=== PATIENT | female | born 1945 | race Two or more races ===

== ENCOUNTER 2023-02-01 12:36 | Emergency (ER) | payer MEDICAID, SELFPAY ==
--- NOTE | 2023-02-01 13:10 | ED.GENADULT ---
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 She states she intermittently gets headaches. She has not seen a doctor since she moved here from [facility] 4 months ago. She denies any new onset weakness, numbness, tingling, chest pain, shortness of breath, vision changes. MD complaint: Untreated hypertension Onset (ago): month(s) (4) Location: head Radiation: non-radiation Severity: moderate Quality: aching Pain Consistency: intermittent Relieving factors: none Exacerbating factors: none Associated symptoms: denies other symptoms Treatments prior to arrival: none Related Data Previous Rx's Medication Instructions Recorded amlodipine 10 mg tablet 10 mg PO DAILY #30 tabs 02/01/23 aspirin 81 mg chewable tablet 81 mg PO DAILY #30 tabs 02/01/23 atorvastatin 40 mg tablet (Lipitor) 40 mg PO BEDTIME #30 tabs 02/01/23 metformin 500 mg tablet 500 mg PO BID #60 tabs 02/01/23 Allergies Allergy/AdvReac Type Severity Reaction Status Date / Time No Known Allergies Allergy Verified 02/01/23 13:11 Review of Systems Review of Systems: Yes all other systems are reviewed and are negative [facility] Social History Social History Advance Directives: No Advance Directives Information Provided: No Physical Exam ED Vital Signs: Vital Signs - 24 hr 02/01/23 13:21 02/01/23 14:33 02/01/23 16:11 Temperature 98 F 98.3 F Pulse Rate 100 84 86 Respiratory Rate 18 16 Blood Pressure 191/113 H 186/87 H 177/86 H Pulse Oximetry 97 98 Oxygen Delivery Method Room Air Room Air BMI result Body Mass Index 0.0 Appearance: Alert. Oriented X3. No acute distress. Head: normocephalic, atraumatic. Eyes: Pupils equal, round and reactive to light. ENT: Pharynx normal. No tonsillar swelling or exudate. Neck: Normal inspection. Neck supple. CVS: Normal heart rate and rhythm. Pulses normal. Respiratory: No respiratory distress. Breath sounds normal. Abdomen: Soft and nontender. +BS x4 Skin: Skin warm and dry. Normal skin color. Normal skin turgor. No rashes. Extremities: No lower extremity edema. No joint swelling. Neuro/psych: Oriented X 3. 4/5 strength in the RUE compared to the left. No sensory deficit. CN II-XII intact. Normal speech and cognition. Course Course Course Narrative: RME: 77-year-old Citizen [place] speaking female w/PMHx HTN presenting to the ED complaining of needing to see a doctor, reports she does not have a doctor and does not have any of her medications. [place]ame to [place] in [place] from [facility] and has been out of medications since. Patient does not know home/previous medications. Admits to intermittent headaches. Denies chest pain Hypertensive 191/113 in triage EKG, labs ordered Full HPI, ROS and PE to be performed by primary ED provider. Medications Administered Discontinued Medications Generic Name Dose Route Start Last Admin Trade Name Freq PRN Reason Stop Dose Admin Amlodipine Besylate 10 mg 02/01/23 14:36 02/01/23 15:17 Amlodipine Besylate 10 Mg Tablet PO 02/01/23 14:37 10 mg ONCE ONE Administration Protocol Medical Decision Making Medical Decision Making [facility] Narrative: 77-year-old Citizen [place] speaking female with history of stroke x2 with residual right-sided weakness and hypertension who presents to the ER for evaluation of untreated hypertension for the last 4 months. Blood pressure initially 190s/110s. She has no current symptoms. Blood pressure improved to the 170 systolic after 10 mg of oral Norvasc. Her labs show glucose of 209 with an A1c of 6.9%. This is consistent with diabetes. Given her stroke history, newly diagnosed diabetes and uncontrolled hypertension she will need to be started on antihypertensives, statin, aspirin, metformin. She will need close outpatient follow-up. Differential Diagnosis Differential Diagnoses: The differential diagnosis associated with the presentation includes Untreated hypertension, accelerated hypertension, hypertensive urgency, hypertensive emergency, asymptomatic hypertension Admission/Observation Consideration of admission/observation: Escalation of care including admission/observation considered Lab Data [facility] Lab Attestation statement: I reviewed the patient's lab results. A1c consistent with diabetes 02/01/23 13:22 02/01/23 13:22 Labs: Lab Results 02/01/23 02/01/23 02/01/23 Range/Units 13:22 13:22 13:22 WBC 6.7 (4.8-10.8) X10*3/uL RBC 5.16 (4.20-5.50) X10*6/uL Hgb 13.0 (12.0-16.0) g/dl Hct 40.0 (37.0-47.0) % MCV 77.5 L (80.0-98.0) fL MCH 25.2 L (27.0-33.0) pg MCHC 32.5 (31.0-35.0) g/dl RDW 14.0 (11.0-16.0) % Plt Count 215 (160-400) X10*3/uL MPV 11.2 (9.4-12.3) fL Immature Gran % (Auto) Cancelled Neut % (Auto) Cancelled Lymph % (Auto) Cancelled Becker % (Auto) Cancelled Eos % (Auto) Cancelled Baso % (Auto) Cancelled Lymph # (Auto) Cancelled Becker # (Auto) Cancelled Eos # (Auto) Cancelled Baso # (Auto) Cancelled Abs Immat Gran (auto) Cancelled Absolute Neuts (auto) Cancelled Absolute Nucleated RBC 0.000 (0.0-0.012) X10*3/uL Nucleated RBC % (auto) 0.0 (0.0-0.2) /100WBC Neutrophils % (Manual) 47 (45-73) % Band Neutrophils % 1 L (3-5) % Lymphocytes % (Manual) 43 H (20-40) % Monocytes % (Manual) 6 (2-11) % Eosinophils % (Manual) 3 (0-4) % Abs Neuts (Manual) 3.2 (2.0-8.3) X10*3/uL Lymphocytes # (Manual) 2.9 (1.2-4.9) X10*3/uL Monocytes # (Manual) 0.4 (0.1-1.2) X10*3/uL Eosinophils # (Manual) 0.2 (0.0-0.4) X10*3/uL Platelet Estimate NORMAL (NORMAL) Large Platelets PRESENT Plt Morphology Comment NOTED RBC Morphology NOTED Polychromasia 1+ (0-2) /OIF Hypochromasia 1+ (5-14) /OIF Microcytosis 1+ (5-14) /OIF Tear Drop Cells 1+ (0-2) /OIF Ovalocytes 1+ (5-14) /OIF [place] Cells 1+ (0-2) /OIF Acanthocytes (Spur) 1+ (0-2) /OIF PT 11.3 (10.0-13.1) SEC INR 1.0 (0.9-1.1) Sodium 139 (135-145) mmol/L Potassium 3.8 (3.3-5.1) mmol/L Chloride 107 (96-108) mmol/L Carbon Dioxide 26 (22-29) mmol/L Anion Gap 10 L (12-20) BUN 13 (9-16) mg/dL Creatinine 0.87 (0.5-1.4) mg/dL Estim Creat Clear Calc TNP Estimated GFR > 60 Random Glucose 209 H (60-115) mg/dL Estimat Average Glucose mg/dL Hemoglobin A1c % % Calcium 10.4 H (8.4-10.2) mg/dL Magnesium 1.8 (1.6-2.6) mg/dL Total Bilirubin 0.7 (0.0-1.0) mg/dL Direct Bilirubin 0.2 (0.0-0.5) mg/dL AST 22 (5-31) U/L ALT 16 (0-31) U/L Alkaline Phosphatase 119 H (39-117) U/L Troponin I High Sens (<3.5-17.0) ng/L Total Protein 7.5 (6.5-8.0) g/dL Albumin 4.1 (3.5-5.0) g/dL 02/01/23 02/01/23 Range/Units 13:22 13:22 WBC (4.8-10.8) X10*3/uL RBC (4.20-5.50) X10*6/uL Hgb (12.0-16.0) g/dl Hct (37.0-47.0) % MCV (80.0-98.0) fL MCH (27.0-33.0) pg MCHC (31.0-35.0) g/dl RDW (11.0-16.0) % Plt Count (160-400) X10*3/uL MPV (9.4-12.3) fL Immature Gran % (Auto) Neut % (Auto) Lymph % (Auto) Becker % (Auto) Eos % (Auto) Baso % (Auto) Lymph # (Auto) Becker # (Auto) Eos # (Auto) Baso # (Auto) Abs Immat Gran (auto) Absolute Neuts (auto) Absolute Nucleated RBC (0.0-0.012) X10*3/uL Nucleated RBC % (auto) (0.0-0.2) /100WBC Neutrophils % (Manual) (45-73) % Band Neutrophils % (3-5) % Lymphocytes % (Manual) (20-40) % Monocytes % (Manual) (2-11) % Eosinophils % (Manual) (0-4) % Abs Neuts (Manual) (2.0-8.3) X10*3/uL Lymphocytes # (Manual) (1.2-4.9) X10*3/uL Monocytes # (Manual) (0.1-1.2) X10*3/uL Eosinophils # (Manual) (0.0-0.4) X10*3/uL Platelet Estimate (NORMAL) Large Platelets Plt Morphology Comment RBC Morphology Polychromasia /OIF Hypochromasia /OIF Microcytosis /OIF Tear Drop Cells /OIF Ovalocytes /OIF [place] Cells /OIF Acanthocytes (Spur) /OIF PT (10.0-13.1) SEC INR (0.9-1.1) Sodium (135-145) mmol/L Potassium (3.3-5.1) mmol/L Chloride (96-108) mmol/L Carbon Dioxide (22-29) mmol/L Anion Gap (12-20) BUN (9-16) mg/dL Creatinine (0.5-1.4) mg/dL Estim Creat Clear Calc Estimated GFR Random Glucose (60-115) mg/dL Estimat Average Glucose 151 mg/dL Hemoglobin A1c % 6.9 % Calcium (8.4-10.2) mg/dL Magnesium (1.6-2.6) mg/dL Total Bilirubin (0.0-1.0) mg/dL Direct Bilirubin (0.0-0.5) mg/dL AST (5-31) U/L ALT (0-31) U/L Alkaline Phosphatase (39-117) U/L Troponin I High Sens < 2.7 (<3.5-17.0) ng/L Total Protein (6.5-8.0) g/dL Albumin (3.5-5.0) g/dL Independent Interpretation I performed an independent interpretation of an: EKG Interpretation: Sinus tachycardia, ventricular rate 110 beats per minute, mild T-wave inversions in V5 and V6, no ST segment elevations or depressions. Independent Historian Clinical information obtained from an independent historian. History obtained from or confirmed by: Friend Chronic Conditions Patient?s care impacted by: Diabetes, Hypertension and Other (Stroke) Social Determinants Patient?s care significantly limited by Social Determinants of Health including: Other Social Determinant of Health Critical Care Time Critical Care Time Critical Care Time: No Discharge Plan Discharge Clinical Impression: Hypertension, Diabetes mellitus Patient Disposition: Home, Self-Care Instructions: Chronic Hypertension (DC), Type 2 Diabetes in the Older Adult (ED) Additional Instructions: Take all medications as prescribed. Follow-up with a primary care doctor as soon as possible Prescriptions: New metformin 500 mg tablet 500 mg PO BID Qty: 60 3RF amlodipine 10 mg tablet 10 mg PO DAILY Qty: 30 3RF atorvastatin [Lipitor] 40 mg tablet 40 mg PO BEDTIME Qty: 30 3RF aspirin 81 mg tablet,chewable 81 mg PO DAILY Qty: 30 3RF
--- NOTE | 2023-02-01 13:14 | ECG_ITS ---
Test Reason : dizziness high bp Blood Pressure : / mmHG Vent. Rate : 110 BPM Atrial Rate : 110 BPM P-R Int : 136 ms QRS Dur : 088 ms QT Int : 310 ms P-R-T Axes : 061 055 -34 degrees QTc Int : 419 ms Sinus tachycardia T wave abnormality, consider inferior ischemia Nonspecific ST and T wave abnormality Abnormal ECG No previous ECGs available Referred By: Simran Smith Electronically Signed By:GRIFFIN MERINO
[2023-02-01 13:21] VITALS: BP 191/113; PULSE 100; RESP 18; TEMP 36.6; O2SAT 97
[2023-02-01 13:31] LABS: Mean Corpuscular HGB Conc 32.5 g/dl (31.0-35.0); Mean Corpuscular Hemoglobin 25.2 pg (27.0-33.0); Mean Corpuscular Volume 77.5 fL (80.0-98.0); Mean Platelet Volume 11.2 fL (9.4-12.3); Platelet Count 215 X10*3/uL (160-400); Red Blood Count 5.16 X10*6/uL (4.20-5.50)
[2023-02-01 13:33] LABS: WBC ABN SCTR FOR CBC 1
[2023-02-01 13:38] LABS: Prothrombin Time 11.3 SEC (10.0-13.1)
[2023-02-01 13:46] LABS: Alanine Aminotransferase 16 U/L (0-31); Albumin Level 4.1 g/dL (3.5-5.0); Alkaline Phosphatase 119 U/L (39-117); Anion Gap 10 (12-20); Aspartate Amino Transferase 22 U/L (5-31); Bilirubin Direct 0.2 mg/dL (0.0-0.5); Bilirubin Total 0.7 mg/dL (0.0-1.0); Blood Urea Nitrogen 13 mg/dL (9-16); Calcium 10.4 mg/dL (8.4-10.2); Carbon Dioxide 26 mmol/L (22-29); Chloride 107 mmol/L (96-108); Estimated Glomerular Filt Rate > 60; Glucose Random 209 mg/dL (60-115); Magnesium 1.8 mg/dL (1.6-2.6); Potassium 3.8 mmol/L (3.3-5.1); Sodium 139 mmol/L (135-145); Total Protein 7.5 g/dL (6.5-8.0)
[2023-02-01 13:59] LABS: Band Neutrophils Percent 1 % (3-5); Eosinophils Percent Manual 3 % (0-4); Lymphocytes Percent Manual 43 % (20-40); Microcytosis 1+ (5-14) /OIF; Monocytes Percent Manual 6 % (2-11); Neutrophils Percent Manual 47 % (45-73); Platelet Estimate NORMAL (NORMAL); Platelet Morphology Comment NOTED; RBC Morphology NOTED
[2023-02-01 14:00] LABS: Acanthocytes 1+ (0-2) /OIF; Burr Cells 1+ (0-2) /OIF; Eosinophils Absolute Manual 0.2 X10*3/uL (0.0-0.4); Hypochromasia 1+ (5-14) /OIF; Large Platelet PRESENT; Lymphocytes Absolute Manual 2.9 X10*3/uL (1.2-4.9); Monocytes Absolute Manual 0.4 X10*3/uL (0.1-1.2); Neutrophils Absolute Manual 3.2 X10*3/uL (2.0-8.3); Ovalocytes 1+ (5-14) /OIF; Polychromasia 1+ (0-2) /OIF; Tear Drop Cells 1+ (0-2) /OIF; White Blood Count 6.7 X10*3/uL (4.8-10.8)
[2023-02-01 14:02] LABS: Troponin-I High Sensitivity < 2.7 ng/L (<3.5-17.0)
[2023-02-01 14:33] VITALS: BP 186/87; PULSE 84; RESP 16; TEMP 36.8; O2SAT 98
[2023-02-01] MEDS: amLODIPine Besylate 10 MG TABLET PO (15:17)
[2023-02-01 15:57] LABS: Estimated Average Glucose 151 mg/dL; Hemoglobin A1c % 6.9 %
[2023-02-01 16:11] VITALS: BP 177/86; PULSE 86
== END 2023-02-01 16:33 | disposition home or self-care (01) ==
PROVIDERS: Physician Assistant; Emergency Provider Emergency Medicine
DX: I10 Essential (primary) hypertension (principal); E11.9 Type 2 diabetes mellitus without complications
CPT/HCPCS: 36415; 80048; 80076; 83036; 83735; 84484; 85007; 85027; 85610; 93005; 99284

== ENCOUNTER 2023-05-28 13:02 | Emergency (ER) | payer MEDICAID, SELFPAY ==
[2023-05-28] VITALS (7 sets, daily range): BP systolic 163–222; BP diastolic 86–121; PULSE 95–121; RESP 12–18; TEMP 36.3–37.2; O2SAT 95–99; BMI 29.8
--- NOTE | 2023-05-28 13:15 | ED.GENADULT ---
HPI - General Adult General Chief complaint: General Medical Stated complaint: R arm weakness? Multiple issues Time Seen by Provider: 05/28/23 17:36 Source: patient Mode of arrival: ambulatory Limitations: language barrier History of Present Illness HPI narrative: patient history of hypertension CVA in the past trinidadian, noncompliant to medications [place]CP in [place] here last time in 02/12 and was given prescription for hypertension comes back again as does not have any medication and trying to use medication off and on to last longer now she does not have any more tablets labs had she came here also complaining of mild headache no nausea no vomiting no chest pain on arrival patient's blood pressure 204/103 with pulse rate of 80 Related Data Previous Rx's Medication Instructions Recorded amlodipine 10 mg tablet 10 mg PO DAILY #30 tabs 02/01/23 aspirin 81 mg chewable tablet 81 mg PO DAILY #30 tabs 02/01/23 atorvastatin 40 mg tablet (Lipitor) 40 mg PO BEDTIME #30 tabs 02/01/23 metformin 500 mg tablet 500 mg PO BID #60 tabs 02/01/23 amlodipine 10 mg tablet 10 mg PO DAILY #90 tabs 05/28/23 aspirin 81 mg tablet,delayed 81 mg PO DAILY #90 tabs 05/28/23 release atorvastatin 40 mg tablet (Lipitor) 40 mg PO BEDTIME #90 tabs 05/28/23 losartan 50 mg-hydrochlorothiazide 1 tab PO DAILY #90 tabs 05/28/23 12.5 mg tablet metformin 500 mg tablet 500 mg PO BID #180 tabs 05/28/23 Allergies Allergy/AdvReac Type Severity Reaction Status Date / Time No Known Allergies Allergy Verified 05/28/23 13:15 Review of Systems Review of Systems: Yes all other systems are reviewed and are negative [facility] Past Medical History Medical History (Updated 05/29/23 @ 01:29 by Shai Augustine MD) CVA (cerebral vascular accident) Hypertension Social History Social History Advance Directives: No Advance Directives Information Provided: No Physical Exam ED Vital Signs: Vital Signs - 24 hr 05/28/23 13:17 05/28/23 16:12 05/28/23 18:00 Temperature 97.4 F 99.0 F Pulse Rate 121 H 98 116 H Respiratory Rate 18 16 18 Blood Pressure 181/102 H 204/103 H 197/121 H Pulse Oximetry 98 96 Oxygen Delivery Method Room Air Room Air 05/28/23 18:47 05/28/23 18:54 05/28/23 18:56 Temperature 97.8 F Pulse Rate 98 99 Respiratory Rate 12 Blood Pressure 209/114 H 222/112 H 182/105 H Pulse Oximetry 99 Oxygen Delivery Method Room Air 05/28/23 20:18 Temperature 98.3 F Pulse Rate 95 Respiratory Rate 16 Blood Pressure 163/86 H Pulse Oximetry 95 Oxygen Delivery Method Room Air BMI result Body Mass Index 29.8 Appearance: Alert. Oriented X3. No acute distress. Eyes: PERRLA, No Nystagmus ENT: Pharynx normal. Oral Mucosa moist Neck: Normal inspection. Neck supple. CVS: Normal heart rate and rhythm. Pulses normal. Respiratory: No respiratory distress. Equal air entry bilateral, no wheezing/rales/rhonchi Abdomen: Soft and nontender. Bowel sounds are present, no mass palpable, no CVA tenderness Skin: Skin warm and dry. Normal skin color. Normal skin turgor. Extremities: No lower extremity edema. No calf tenderness Neuro: Oriented X 3. residual right-sided deficit. No sensory deficit.No cerebellar signs , cranial nerves II-XII intact Course Course Course Narrative: This is an RME: Additional HPI, ROS, PE not included below will be deferred to primary provider. 78 year old female presenting with a chief complaint that her body hurts at night that has been going on x3 days. She reports that right now she has a headache but no pain. Plan: labs, EKG Medications Administered Discontinued Medications Generic Name Dose Route Start Last Admin Trade Name Tanisha PRN Reason Stop Dose Admin Amlodipine Besylate 10 mg 05/28/23 18:22 05/28/23 18:28 Amlodipine Besylate 10 Mg Tablet PO 05/28/23 18:23 10 mg ONCE ONE Administration Protocol Losartan Potassium 50 mg 05/28/23 19:36 05/28/23 19:55 Losartan Potassium 50 Mg Tablet PO 05/28/23 19:37 50 mg ONCE ONE Administration Protocol Medical Decision Making Medical Decision Making MDM Narrative: patient educated about hypertension need for medications prescribed medication for 3 months along with added losartan for better blood pressure control at PCP name was given patient will be following PCP in next few days blood pressure improved to 163/86 Differential Diagnosis Differential Diagnoses: The differential diagnosis associated with the presentation includes accelerated hypertension /chronic hypertension Admission/Observation Consideration of admission/observation: Escalation of care including admission/observation considered Lab Data 05/28/23 13:34 05/28/23 13:34 Labs: Lab Results 05/28/23 05/28/23 05/28/23 Range/Units 13:34 13:34 13:34 WBC 7.7 (4.8-10.8) X10*3/uL RBC 5.15 (4.20-5.50) X10*6/uL Hgb 13.2 (12.0-16.0) g/dl Hct 39.8 (37.0-47.0) % MCV 77.3 L (80.0-98.0) fL MCH 25.6 L (27.0-33.0) pg MCHC 33.2 (31.0-35.0) g/dl RDW 15.3 (11.0-16.0) % Plt Count 254 (160-400) X10*3/uL MPV 11.7 (9.4-12.3) fL Immature Gran % (Auto) Cancelled Neut % (Auto) Cancelled Lymph % (Auto) Cancelled [place] % (Auto) Cancelled Eos % (Auto) Cancelled Baso % (Auto) Cancelled Lymph # (Auto) Cancelled [place] # (Auto) Cancelled Eos # (Auto) Cancelled Baso # (Auto) Cancelled Abs Immat Gran (auto) Cancelled Absolute Neuts (auto) Cancelled Absolute Nucleated RBC 0.000 (0.0-0.012) X10*3/uL Nucleated RBC % (auto) 0.0 (0.0-0.2) /100WBC Neutrophils % (Manual) 57 (45-73) % Band Neutrophils % 0 L (3-5) % Lymphocytes % (Manual) 35 (20-40) % Monocytes % (Manual) 8 (2-11) % Abs Neuts (Manual) 4.4 (2.0-8.3) X10*3/uL Lymphocytes # (Manual) 2.7 (1.2-4.9) X10*3/uL Monocytes # (Manual) 0.6 (0.1-1.2) X10*3/uL Platelet Estimate NORMAL (NORMAL) Large Platelets PRESENT Plt Morphology Comment NOTED RBC Morphology NOTED Polychromasia 1+ (0-2) /OIF Microcytosis 1+ (5-14) /OIF Tear Drop Cells 1+ (0-2) /OIF Ovalocytes 1+ (5-14) /OIF [place] Cells 1+ (0-2) /OIF Acanthocytes (Spur) 1+ (0-2) /OIF Sodium 142 (135-145) mmol/L Potassium 3.6 (3.3-5.1) mmol/L Chloride 107 (96-108) mmol/L Carbon Dioxide 26 (22-29) mmol/L Anion Gap 13 (12-20) BUN 13 (9-16) mg/dL Creatinine 0.85 (0.5-1.4) mg/dL Estim Creat Clear Calc 62.5 Estimated GFR > 60 Random Glucose 100 (60-115) mg/dL Calcium 11.8 H D (8.4-10.2) mg/dL Magnesium 2.1 (1.6-2.6) mg/dL Total Bilirubin 0.6 (0.0-1.0) mg/dL AST 18 (5-31) U/L ALT 16 (0-31) U/L Alkaline Phosphatase 117 (39-117) U/L Troponin I High Sens < 2.7 (<3.5-17.0) ng/L Total Protein 8.5 H (6.5-8.0) g/dL Albumin 4.4 (3.5-5.0) g/dL COVID-19 (MICHAEL) (Negative) COVID-19 Clin Com 05/28/23 Range/Units 18:04 WBC (4.8-10.8) X10*3/uL RBC (4.20-5.50) X10*6/uL Hgb (12.0-16.0) g/dl Hct (37.0-47.0) % MCV (80.0-98.0) fL MCH (27.0-33.0) pg MCHC (31.0-35.0) g/dl RDW (11.0-16.0) % Plt Count (160-400) X10*3/uL MPV (9.4-12.3) fL Immature Gran % (Auto) Neut % (Auto) Lymph % (Auto) [place] % (Auto) Eos % (Auto) Baso % (Auto) Lymph # (Auto) [place] # (Auto) Eos # (Auto) Baso # (Auto) Abs Immat Gran (auto) Absolute Neuts (auto) Absolute Nucleated RBC (0.0-0.012) X10*3/uL Nucleated RBC % (auto) (0.0-0.2) /100WBC Neutrophils % (Manual) (45-73) % Band Neutrophils % (3-5) % Lymphocytes % (Manual) (20-40) % Monocytes % (Manual) (2-11) % Abs Neuts (Manual) (2.0-8.3) X10*3/uL Lymphocytes # (Manual) (1.2-4.9) X10*3/uL Monocytes # (Manual) (0.1-1.2) X10*3/uL Platelet Estimate (NORMAL) Large Platelets Plt Morphology Comment RBC Morphology Polychromasia /OIF Microcytosis /OIF Tear Drop Cells /OIF Ovalocytes /OIF [place] Cells /OIF Acanthocytes (Spur) /OIF Sodium (135-145) mmol/L Potassium (3.3-5.1) mmol/L Chloride (96-108) mmol/L Carbon Dioxide (22-29) mmol/L Anion Gap (12-20) BUN (9-16) mg/dL Creatinine (0.5-1.4) mg/dL Estim Creat Clear Calc Estimated GFR Random Glucose (60-115) mg/dL Calcium (8.4-10.2) mg/dL Magnesium (1.6-2.6) mg/dL Total Bilirubin (0.0-1.0) mg/dL AST (5-31) U/L ALT (0-31) U/L Alkaline Phosphatase (39-117) U/L Troponin I High Sens (<3.5-17.0) ng/L Total Protein (6.5-8.0) g/dL Albumin (3.5-5.0) g/dL COVID-19 (MICHAEL) Negative (Negative) COVID-19 Clin Com See Note Discharge Plan Discharge Clinical Impression: Hypertension, uncontrolled Patient Disposition: Home, Self-Care Instructions: Chronic Hypertension (ED) Additional Instructions: take medication as prescribed and see the PCP for follow-up your blood pressure normal should be less than 130/85 check blood pressure twice daily before taking the medicine and before going to bed bunny alegria epi w? PCP freddy f? swivi tansyon ou n?mal ta dwe mwens pase 130/85 tcheke tansyon de fwreji phillip ou bunny [facility] an ak anvan ou dewey mansoor stoll Prescriptions: New amlodipine 10 mg tablet 10 mg PO DAILY Qty: 90 3RF losartan-hydrochlorothiazide 50-12.5 mg tablet 1 tab PO DAILY Qty: 90 3RF aspirin 81 mg tablet,delayed release (DR/EC) 81 mg PO DAILY Qty: 90 3RF atorvastatin [Lipitor] 40 mg tablet 40 mg PO BEDTIME Qty: 90 3RF metformin 500 mg tablet 500 mg PO BID Qty: 180 3RF No Action metformin 500 mg tablet 500 mg PO BID Qty: 60 3RF amlodipine 10 mg tablet 10 mg PO DAILY Qty: 30 3RF atorvastatin [Lipitor] 40 mg tablet 40 mg PO BEDTIME Qty: 30 3RF aspirin 81 mg tablet,chewable 81 mg PO DAILY Qty: 30 3RF Referrals: Ángela Cantrell MD [Physician] - 2 weeks Discharge Date/Time: 05/28/23 20:43
--- NOTE | 2023-05-28 13:22 | ECG_ITS ---
Test Reason : CHEST PAIN Blood Pressure : / mmHG Vent. Rate : 126 BPM Atrial Rate : 126 BPM P-R Int : 130 ms QRS Dur : 078 ms QT Int : 292 ms P-R-T Axes : 066 038 024 degrees QTc Int : 422 ms Sinus tachycardia Possible Left atrial enlargement Nonspecific T wave abnormality Abnormal ECG When compared with ECG of 01-FEB-2023 13:26, Nonspecific T wave abnormality has replaced inverted T waves in Inferior leads Referred By: Linnea Darby Electronically Signed By:KODY ESCUDERO
[2023-05-28 13:49] LABS: Hematocrit 39.8 % (37.0-47.0); Hemoglobin 13.2 g/dl (12.0-16.0); Mean Corpuscular HGB Conc 33.2 g/dl (31.0-35.0); Mean Corpuscular Hemoglobin 25.6 pg (27.0-33.0); Mean Corpuscular Volume 77.3 fL (80.0-98.0); Mean Platelet Volume 11.7 fL (9.4-12.3); Platelet Count 254 X10*3/uL (160-400); Red Blood Count 5.15 X10*6/uL (4.20-5.50); Red Cell Distribution Width 15.3 % (11.0-16.0)
[2023-05-28 13:55] LABS: WBC ABN SCTR FOR CBC 1; White Blood Count 7.7 X10*3/uL (4.8-10.8)
[2023-05-28 14:06] LABS: Alanine Aminotransferase 16 U/L (0-31); Albumin Level 4.4 g/dL (3.5-5.0); Alkaline Phosphatase 117 U/L (39-117); Anion Gap 13 (12-20); Aspartate Amino Transferase 18 U/L (5-31); Bilirubin Total 0.6 mg/dL (0.0-1.0); Blood Urea Nitrogen 13 mg/dL (9-16); Calcium 11.8 mg/dL (8.4-10.2); Carbon Dioxide 26 mmol/L (22-29); Chloride 107 mmol/L (96-108); Creatinine Clr Calc Pharmacy 62.5; Estimated Glomerular Filt Rate > 60; Glucose Random 100 mg/dL (60-115); Magnesium 2.1 mg/dL (1.6-2.6); Potassium 3.6 mmol/L (3.3-5.1); Sodium 142 mmol/L (135-145); Total Protein 8.5 g/dL (6.5-8.0)
[2023-05-28 14:12] LABS: Lymphocytes Absolute Manual 2.7 X10*3/uL (1.2-4.9); Lymphocytes Percent Manual 35 % (20-40); Monocytes Absolute Manual 0.6 X10*3/uL (0.1-1.2); Monocytes Percent Manual 8 % (2-11); Neutrophils Percent Manual 57 % (45-73)
[2023-05-28 14:13] LABS: RBC Morphology NOTED
[2023-05-28 14:14] LABS: Acanthocytes 1+ (0-2) /OIF; Burr Cells 1+ (0-2) /OIF; Ovalocytes 1+ (5-14) /OIF
[2023-05-28 14:15] LABS: Troponin-I High Sensitivity < 2.7 ng/L (<3.5-17.0)
[2023-05-28 14:16] LABS: Microcytosis 1+ (5-14) /OIF
[2023-05-28 14:17] LABS: Large Platelet PRESENT; Platelet Estimate NORMAL (NORMAL); Platelet Morphology Comment NOTED; Polychromasia 1+ (0-2) /OIF; Tear Drop Cells 1+ (0-2) /OIF
[2023-05-28 14:18] LABS: Band Neutrophils Percent 0 % (3-5); Neutrophils Absolute Manual 4.4 X10*3/uL (2.0-8.3)
--- NOTE | 2023-05-28 16:04 | PC.NURSE ---
lior speaking only translation with [facility]; pt states she needs medication refill for bp medication; last dose yesterday. pt reports skipped todays dose d/t bp 120s/80s this am. pt reports intermittent body aches/ABEBE during nighttime; reports 3/10 pain last night. axox4, neuros intact. awaiting primary eval by ed provider. call bryson within reach.
--- NOTE | 2023-05-28 18:16 | PC.NURSE ---
pt sinus tachy on the bus monitor. pt has low grade temp at 99.0 orally. BP on left side 197/121 and BP on right side 214/119. will notify provider.
[2023-05-28 18:23] LABS: COVID-19 Test Negative (Negative); IDNOW Serial# 08D9AD1C
[2023-05-28] MEDS: amLODIPine Besylate 10 MG TABLET PO (18:28)
--- NOTE | 2023-05-28 18:29 | PC.NURSE ---
provider aware of pt's hypertension - medication administered per provider order. pt's BP cycling q15min. will reassess blood pressure shortly. call bryson placed within reach.
[2023-05-28] MEDS: Losartan Potassium 50 MG TABLET PO (19:55)
== END 2023-05-28 20:43 | disposition home or self-care (01) ==
PROVIDERS: Physician Assistant; Emergency Provider Internal Medicine
DX: R07.89 Other chest pain (principal); R00.0 Tachycardia, unspecified; I10 Essential (primary) hypertension; Z20.822 Contact with and (suspected) exposure to COVID-19; Z20.828 Contact with and (suspected) exposure to other viral communicable diseases; Z79.899 Other long term (current) drug therapy
CPT/HCPCS: 36415; 80053; 83735; 84484; 85007; 85027; 87635; 93005; 99283; 99284

== ENCOUNTER 2024-01-15 07:37 | Outpatient (AMB) | payer MEDICAID, SELFPAY ==
[2024-01-15 07:45] VITALS: BP 166/88; BMI 30.4
--- NOTE | 2024-01-15 07:45 | A.OFFPC_ITS ---
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 Required: No Accompanied by: Friend Allergies No Known Allergies Allergy (Verified 01/15/24 08:01) Medication List - Last Reconciled 01/15/24 by Ángela Balbuena MD amlodipine 10 mg PO DAILY aspirin 81 mg PO DAILY atorvastatin (Lipitor) 40 mg PO BEDTIME losartan-hydrochlorothiazide 50-12.5 mg 1 tab PO DAILY metformin 500 mg PO BID Tobacco use date assessed: 01/15/24 Fall risk assessment: No Falls in past year Last assessed Fall Risk: 01/15/24 Dental Screening Dental Screen Date: 01/15/24 Did you have a dental visit in the last 12 months?: Yes Did you have a dental problem in the last 6 months where you did not have access to dental care?: No Was dental information given to patient?: Patient has dentist HPI HPI Comments History of Present Illness Details This is a 78-year-old female with diabetes mellitus type 2 without long-term current use of insulin, hypertension, hyperlipidemia, and history of stroke with right hemiplegia that comes today accompanied by a friend to establish care. Her A1cs within goal. Blood pressure elevated and will be recheck in 3 weeks by nurse. She complains of constipation with less than 3 bowel movements per week. She also complains of polyuria and I will change losartan-hydrochlorothiazide to losartan only and increase the dose. Lipid panel will be order and her LDL goal should be less than 70. She only talks creole and has a friend as the communications specialist. [facility] Medical History (Updated 01/15/24 @ 08:27 by Ángela Balbuena MD) CVA (cerebral vascular accident) Hypertension Surgical History No pertinent past surgical history Family History Mother Hypertension Father No problems noted. Social History Housing: House Alcohol intake: never Patient Tobacco Use Status: Never used Tobacco e-Cigarette/Vaping Use: Never Used Second Hand Smoke Exposure: No service: No Current occupational status: disabled Cognitive needs: Yes Hearing needs: No Vision needs: Yes Questionnaire PHQ-9 Over the last 2 weeks, how often have you been bothered by any of the following problems? 1. Little interest or pleasure in doing things: not at all 2. Feeling down, depressed, or hopeless: not at all 3. Trouble falling or staying asleep, or sleeping too much: not at all 4. Feeling tired or having little energy: not at all 5. Poor appetite or overeating: not at all 6. Feeling bad about yourself - or that you are a failure or have let yourself or your family down: not at all 7. Trouble concentrating on things, such as reading the newspaper or watching television: not at all 8. Moving or speaking so slowly that other people could have noticed. Or the opposite - being so fidgety or restless that you have been moving around a lot more than usual: not at all 9. Thoughts that you would be better off or of hurting yourself in some way: not at all Total score: 0 Depression Screening Interpretation: Negative Depression Screening Done: Yes 72775 - PHQ-9 Billing: Yes Source: Developed by Drs. Guy Yun, Norma Solis, Sunday Thompson and colleagues, with an educational alex from [employer]. Thrive Questionnaire Date Thrive assessed: 01/15/24 I am a: Patient What is your living situation today?: I have a steady place to live Within the past 12 months, did the food you bought not last and you didn't have the money to get more?: Never true Within the past 12 months, did you worry whether your food would run out before you got money to buy more?: Never true Do you have trouble paying for medicines?: No Do you have trouble getting transportation to medical appointments?: No Do you have trouble paying your heating and electricity bill?: No Do you have trouble taking care of your child, family member or friend?: No Do you have trouble with day-to-day activities such as bathing, preparing meals, shopping, managing finances, etc.?: Yes Are you currently unemployed and looking for a job?: No Are you interested in more education?: No Please select the resources that you would like help with: None Currently or been in a relationship where the following occur: no concerns reported THRIVE Score: 0 AUDIT C Alcohol Use Questionnaire (AUDIT-C) 1. How often do you have a drink containing alcohol?: Never Total Score: 0 Score Reviewed/Action Taken: No DAXA-7 AMB Questionnaire DAXA-7 Date DAXA - 7 assessed: 01/15/24 Feeling nervous, anxious, or on edge: 0 = Not at all Not being able to stop or control worryin = Not at all Worrying too much about different things: 0 = Not at all Trouble relaxin = Not at all Being so restless that it is hard to sit still: 0 = Not at all Becoming easily annoyed or irritable: 0 = Not at all Feeling afraid as if something awful might happen: 0 = Not at all Total DAXA-7 score (0-4 normal; 5-9 mild; 10-14 moderate; 15-21 severe): 0 Source: Developed by Drs. Guy Yun, Norma Solis, Sunday Thompson and colleagues, with an educational alex from [employer]. DAXA-7 Assessment Billing DAXA-7 Assessment Tool: DAXA-7 Assessment 71525 Review of Systems Const All systems reviewed & are unremarkable except as noted in HPI and below Eyes Reports no additional complaints, Denies change in vision and Denies other visual disturbances Card Denies chest pain at rest, Denies chest pain with activity, Denies edema, Denies irregular heart rhythm, Denies claudication, Denies dyspnea, Denies dyspnea on exertion, Denies orthopnea, Denies paroxysmal nocturnal dyspnea and Denies slow heart rate Resp Denies cough, Denies dyspnea and Denies dyspnea on exertion GI Denies abdominal pain, Denies change in bowel habits, Reports constipation, Denies excessive flatus, Denies nausea and Denies vomiting Reports urinary incontinence, Denies urinary hesitancy and Denies urinary urgency Neuro Reports focal weakness Physical exam (Primary Care) Vital Signs: Last Vital Signs BP 166/88 H 01/15/24 07:45 BMI result Body Mass Index 30.4 BMI Assessment/Plan discussion: High Tobacco/Smoking Status: Tobacco use Status Tobacco use date assessed 01/15/24 01/15/24 07:54 Patient Tobacco Use Status Never used Tobacco 01/15/24 07:54 e-Cigarette/Vaping Use Never Used 01/15/24 07:54 PHQ-9: PHQ-9 Score PHQ-9: Total score 0 01/15/24 07:54 Depression Screening Interpretation: Negative Thrive Assessment: Date of Thrive Assessment Date Thrive assessed 01/15/24 01/15/24 07:54 Currently or been in a relationship where the following occur: no concerns reported Resp Effort & Inspection: normal respiratory effort Auscultation: clear to auscultation bilaterally Cardio Jugular venous distension: no JVD Rate: regular rate Rhythm: regular rhythm Heart sounds: Murmur heart sound present Neuro Motor exam (neuro): Abnormal motor strength present (right upper limb 1/5, right lower limb 5/5, left side 5/5) Psych Appearance: grossly normal Results AMB Hemoglobin A1c AMB Hemoglobin A1c 6.0 % Last Edit by CESAR Hernandez on 01/15/24 08:0 7 Assessment and Plan Assessment & Plan (1) Type 2 diabetes mellitus, without long-term current use of insulin: Code(s): E11.9 - Type 2 diabetes mellitus without complications Plan: Continue metformin. A1c goal is equal or less than 7%. (2) Essential hypertension: Code(s): I10 - Essential (primary) hypertension Plan: Continue amlodipine. Discontinue losartan-hydrochlorothiazide. Start losartan 100 mg once a day. Blood pressure goal is equal or less than 130/80. Recheck blood pressure with nurse navigator in 3 weeks. (3) Hyperlipidemia LDL goal <70: Code(s): E78.5 - Hyperlipidemia, unspecified Plan: Continue statins. LDL goal is less than 70. (4) Right hemiplegia: Code(s): G81.91 - Hemiplegia, unspecified affecting right dominant side Plan: Continue aspirin for secondary prophylaxis. Continue family support. (5) CVA (cerebral vascular accident): Code(s): I63.9 - Cerebral infarction, unspecified Plan: Continue aspirin for secondary prophylaxis. Blood pressure goal is less than 130/80. LDL goal is less than 70 Orders: Orders XR DEXA axial skeleton Today N95.9 - Unspecified menopausal and perimenopausal disorder Complete Blood Count Auto Diff Today E66.9 - Obesity, unspecified AMB Hemoglobin A1c Today E11.9 - Type 2 diabetes mellitus without complications CA echo transthoracic complete Today R01.1 - Cardiac murmur, unspecified Lipid Panel Today E78.5 - Hyperlipidemia, unspecified Microalbumin, Random (w Creat) Today E11.9 - Type 2 diabetes mellitus without complications MM screening mammo BI Today Z12.31 - Encounter for screening mammogram for malignant neoplasm of breast Comprehensive [place]. Panel Fast Today E11.9 - Type 2 diabetes mellitus without complications Medications: Discontinued amlodipine Discontinued Reason: Duplicate 10 mg PO DAILY 30 tabs 3RF atorvastatin (Lipitor) Discontinued Reason: Duplicate 40 mg PO BEDTIME 30 tabs 3RF aspirin Discontinued Reason: Duplicate 81 mg PO DAILY 30 tabs 3RF metformin Discontinued Reason: Duplicate 500 mg PO BID 60 tabs 3RF Coding Level of Care Code New Pt Level 4 (84574) Diagnoses Type 2 diabetes mellitus, without long-term current use of insulin E11.9 Essential hypertension I10 Hyperlipidemia LDL goal <70 E78.5 Right hemiplegia G81.91 CVA (cerebral vascular accident) I63.9 Additional Codes DAXA-7 Assessment Billing - DAXA-7 Assessment Tool: DAXA-7 Assessment [id number] ([id number]) Time Spent (min) 28
[2024-01-15 08:27] VITALS: BP 150/90
== END 2024-01-15 08:23 | disposition home or self-care (01) ==
PROVIDERS: PCP Internal Medicine; Visit Provider Internal Medicine
DX: E11.9 Type 2 diabetes mellitus without complications (principal); I10 Essential (primary) hypertension; E78.5 Hyperlipidemia, unspecified; I69.351 Hemiplegia and hemiparesis following cerebral infarction affecting right dominant side
CPT/HCPCS: 83036; 99204

== ENCOUNTER 2024-05-27 16:12 | Outpatient (AMB) | payer MEDICAID, SELFPAY ==
[2024-05-27 16:16] VITALS: BP 164/90; PULSE 98; O2SAT 99; BMI 29.5
--- NOTE | 2024-05-27 16:16 | A.OFFPC_ITS ---
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 Accompanied by: Family Friend Allergies No Known Allergies Allergy (Verified 05/27/24 16:23) Medication List - Last Reconciled 05/27/24 by Ángela Balbuena MD amlodipine 10 mg PO DAILY 90 days aspirin 81 mg PO DAILY 90 days atorvastatin (Lipitor) 40 mg PO BEDTIME 90 days blood sugar diagnostic (FreeStyle Lite Strips) Use 1 test strip once a day blood-glucose meter (FreeStyle Lite Meter kit) As directed hydralazine 10 mg PO TID 30 days lactulose 10 grams (15 mL) PO BID PRN 30 days lancets (FreeStyle Lancets) Use 1 lancet once a day losartan 100 mg PO DAILY 90 days metformin 500 mg PO BID 90 days sennosides (senna) 8.6 mg PO BEDTIME PRN 90 days Tobacco use date assessed: 01/15/24 Fall risk assessment: No Falls in past year Last assessed Fall Risk: 05/27/24 Dental Screening Dental Screen Date: 01/15/24 HPI HPI Comments History of Present Illness Details This is a 79-year-old female with diabetes mellitus type 2, hypertension, hyperlipidemia and chronic idiopathic constipation that comes today for follow-up on her conditions accompanied by friend which is the core inserter. A1c within goal. Blood pressure elevated and I will increase hydralazine. Blood pressure will be recheck in 3 weeks by nurse navigator. Lipid panel was reorder and her LDL goal should be less than 70. Constipation stable with lactulose as needed. Denies any chest pain or shortness on breath. [facility] Medical History CVA (cerebral vascular accident) Hypertension Surgical History No pertinent past surgical history Family History Mother Hypertension Father No problems noted. Social History Housing: House Alcohol intake: never Patient Tobacco Use Status: Never used Tobacco e-Cigarette/Vaping Use: Never Used Second Hand Smoke Exposure: No service: No Current occupational status: disabled Cognitive needs: Yes Hearing needs: No Vision needs: Yes Questionnaire Thrive Questionnaire Date Thrive assessed: 01/15/24 DAXA-7 AMB Questionnaire DAXA-7 Date DAXA - 7 assessed: 01/15/24 Source: Developed by Drs. Guy Yun, Norma Solis, Sunday Thompson and colleagues, with an educational alex from [employer]. Review of Systems Const All systems reviewed & are unremarkable except as noted in HPI and below Card Denies chest pain at rest, Denies chest pain with activity, Denies edema, Denies irregular heart rhythm, Denies claudication, Denies dyspnea, Denies dyspnea on exertion, Denies orthopnea, Denies paroxysmal nocturnal dyspnea and Denies slow heart rate Resp Denies cough, Denies dyspnea and Denies dyspnea on exertion GI Denies abdominal pain, Denies change in bowel habits, Denies excessive flatus, Denies nausea and Denies vomiting Denies urinary incontinence, Denies urinary hesitancy and Denies urinary urgency Musc Denies atrophy, Denies deformity and Denies limited range of motion Skin/Breast Denies bleeding lesions, Denies changing lesions and Denies rash Physical exam (Primary Care) Vital Signs: Last Vital Signs Pulse 98 05/27/24 16:16 BP 164/90 H 05/27/24 16:16 Pulse Ox 99 05/27/24 16:16 Oxygen Delivery Method Room Air 05/27/24 16:16 BMI result Body Mass Index 29.5 Tobacco/Smoking Status: Tobacco use Status Tobacco use date assessed 01/15/24 05/27/24 16:24 Patient Tobacco Use Status Never used Tobacco 05/27/24 16:24 e-Cigarette/Vaping Use Never Used 05/27/24 16:24 Thrive Assessment: Date of Thrive Assessment Date Thrive assessed 01/15/24 05/27/24 16:24 Resp Effort & Inspection: normal respiratory effort Auscultation: clear to auscultation bilaterally Cardio Jugular venous distension: no JVD Rate: regular rate Rhythm: regular rhythm Heart sounds: S1 normal heart sound present and S2 normal heart sound present Extrem General: Yes full ROM Results AMB Hemoglobin A1c AMB Hemoglobin A1c 5.9 % Last Edit by GARY Vargas on 05/27/24 16:25 Results Reviewed Results Reviewed: Laboratory Last Values Hgb A1c (Clinic) 5.9 % (4.0-6.0) 05/27/24 16:14 Assessment and Plan Assessment & Plan (1) Type 2 diabetes mellitus, without long-term current use of insulin: Code(s): E11.9 - Type 2 diabetes mellitus without complications Qualifiers: Diabetes mellitus complication status: without complication Qualified Code(s): E11.9 - Type 2 diabetes mellitus without complications Plan: Continue metformin. A1c goal is equal or less than 7%. (2) Essential hypertension: Code(s): I10 - Essential (primary) hypertension Plan: Continue losartan and amlodipine. Increase hydralazine. Blood pressure goal is equal or less than 130/80. (3) Hyperlipidemia LDL goal <70: Code(s): E78.5 - Hyperlipidemia, unspecified Plan: Continue statins. LDL goal is less than 70. (4) Chronic idiopathic constipation: Code(s): K59.04 - Chronic idiopathic constipation Plan: Continue lactulose as needed. Orders: Orders Lipid Panel Today E78.5 - Hyperlipidemia, unspecified AMB Hemoglobin A1c Today E11.9 - Type 2 diabetes mellitus without complications Microalbumin, Random (w Creat) Today E11.9 - Type 2 diabetes mellitus without complications Vitamin D 25-OH Total Today E55.9 - Vitamin D deficiency, unspecified Comprehensive [place]. Panel Fast Today I63.9 - Cerebral infarction, unspecified Medications: New hydralazine 25 mg PO TID 90 tabs 6RF 30 days Refilled aspirin 81 mg PO DAILY 90 tabs 3RF 90 days I63.9 - Cerebral infarction, unspecified lactulose 10 grams (15 mL) PO BID PRN 237 mL 2RF constipation 30 days lancets (FreeStyle Lancets) Use 1 lancet once a day 100 ea 6RF E11.9 - Type 2 diabetes mellitus without complications amlodipine 10 mg PO DAILY 90 tabs 3RF 90 days I10 - Essential (primary) hypertension atorvastatin (Lipitor) 40 mg PO BEDTIME 90 tabs 3RF 90 days E78.5 - Hyperlipidemia, unspecified blood sugar diagnostic (FreeStyle Lite Strips) Use 1 test strip once a day 50 ea 6RF E11.9 - Type 2 diabetes mellitus without complications blood-glucose meter (FreeStyle Lite Meter kit) As directed 1 ea 0RF E11.9 - Type 2 diabetes mellitus without complications losartan 100 mg PO DAILY 90 tabs 1RF 90 days I10 - Essential (primary) hypertension metformin 500 mg PO BID 180 tabs 3RF 90 days E11.9 - Type 2 diabetes mellitus without complications sennosides (senna) 8.6 mg PO BEDTIME PRN 90 tabs 0RF constipation 90 days K59.04 - Chronic idiopathic constipation Discontinued hydralazine Discontinued Reason: Patient Completed Course 10 mg PO TID 30 days 90 tabs 1RF Coding Level of Care Code Est Pt Level 4 (97454) Complex EM visit Add On G2211 Diagnoses Type 2 diabetes mellitus without complication, without long-term current use of insulin E11.9 Diabetes mellitus complication status: without complication Essential hypertension I10 Hyperlipidemia LDL goal <70 E78.5 Chronic idiopathic constipation K59.04 Time Spent (min) 23
[2024-05-27 19:01] VITALS: BP 160/90
== END 2024-05-27 16:34 | disposition home or self-care (01) ==
PROVIDERS: PCP Internal Medicine; Visit Provider Internal Medicine
DX: E11.9 Type 2 diabetes mellitus without complications (principal); I10 Essential (primary) hypertension; E78.5 Hyperlipidemia, unspecified; K59.04 Chronic idiopathic constipation
CPT/HCPCS: 83036; 99214

== ENCOUNTER 2024-09-04 09:27 | Emergency (ER) | payer MEDICAID, SELFPAY ==
--- NOTE | ~2024-09-04 | XR_ITS ---
EXAMINATION: XR CHEST CLINICAL INFORMATION: CP COMPARISON: None available. TECHNIQUE: PA and lateral views of the chest were obtained. FINDINGS: The lungs are adequately expanded. No dense focal consolidation, effusion, pulmonary edema or pneumothorax. The cardiomediastinal silhouette is enlarged. No acute osseous abnormality. XR/XR chest 2V IMPRESSION: 1. No acute pulmonary disease. 2. Mild cardiomegaly. Electronically signed by: Kelsey Yepez DO 09/04/2024 12:51 PM [facility] [place]
--- NOTE | 2024-09-04 09:28 | ECG_ITS ---
Test Reason : chest pain Blood Pressure : / mmHG Vent. Rate : 093 BPM Atrial Rate : 093 BPM P-R Int : 132 ms QRS Dur : 078 ms QT Int : 332 ms P-R-T Axes : -04 025 023 degrees QTc Int : 412 ms Normal sinus rhythm Nonspecific ST and T wave abnormality Abnormal ECG When compared with ECG of 28-MAY-2023 13:27, No significant change was found Referred By: Generic ED Physician Electronically Signed By:JUSTIN LUI MD
[2024-09-04 09:49] VITALS: BP 188/95; PULSE 90; RESP 20; TEMP 36.6; O2SAT 100; BMI 28.7
[2024-09-04 10:04] LABS: Hematocrit 40.3 % (37.0-47.0); Hemoglobin 13.5 g/dl (12.0-16.0); Mean Corpuscular HGB Conc 33.5 g/dl (31.0-35.0); Mean Corpuscular Hemoglobin 25.9 pg (27.0-33.0); Mean Corpuscular Volume 77.2 fL (80.0-98.0); Mean Platelet Volume 11.3 fL (9.4-12.3); Platelet Count 206 X10*3/uL (160-400); Red Blood Count 5.22 X10*6/uL (4.20-5.50); Red Cell Distribution Width 14.8 % (11.0-16.0); WBC ABN SCTR FOR CBC 1; White Blood Count 5.6 X10*3/uL (4.8-10.8)
[2024-09-04 10:10] LABS: Anion Gap 12 (12-20); Blood Urea Nitrogen 12 mg/dL (9-16); Calcium 10.5 mg/dL (8.4-10.2); Carbon Dioxide 25 mmol/L (22-29); Chloride 106 mmol/L (96-108); Creatinine Clr Calc Pharmacy 52.6; Estimated Glomerular Filt Rate 53; Glucose Random 131 mg/dL (60-115); Potassium 3.5 mmol/L (3.3-5.1); Sodium 139 mmol/L (135-145)
[2024-09-04 10:19] LABS: Troponin-I High Sensitivity < 2.7 ng/L (<3.5-17.0)
[2024-09-04 10:34] LABS: Atypical Lymph Absolute Manual 0.1 x10*3/uL; Atypical Lymphs Percent Manual 2 % (0-6); Band Neutrophils Percent 3 % (3-5); Basophils Abs Manual 0.1 X10*3/uL (0.0-0.2); Basophils Percent Manual 2 % (0-2); Eosinophils Absolute Manual 0.1 X10*3/uL (0.0-0.4); Eosinophils Percent Manual 2 % (0-4); Lymphocytes Absolute Manual 2.4 X10*3/uL (1.2-4.9); Lymphocytes Percent Manual 42 % (20-40); Monocytes Absolute Manual 0.2 X10*3/uL (0.1-1.2); Monocytes Percent Manual 3 % (2-11); Neutrophils Absolute Manual 2.7 X10*3/uL (2.0-8.3); Neutrophils Percent Manual 46 % (45-73)
[2024-09-04 10:38] LABS: Burr Cells 1+ (0-2) /OIF; Hypochromasia 2+ (15-30) /OIF; Polychromasia 1+ (0-2) /OIF; RBC Morphology NORMAL; Schistocytes 1+ (0-2) /OIF; Target Cells 1+ (5-14) /OIF
[2024-09-04 10:39] LABS: Large Platelet PRESENT; Platelet Estimate NORMAL (NORMAL); Platelet Morphology Comment NOTED
[2024-09-04 14:42] VITALS: BP 202/110; PULSE 97; RESP 18; O2SAT 97
[2024-09-04 15:15] VITALS: BP 202/110
[2024-09-04] MEDS: hydrALAZINE HCl 25 MG TABLET PO (15:15)
--- NOTE | 2024-09-04 15:22 | ED.CHESTPAIN ---
HPI - Chest Pain General Chief Complaint: Chest Pain Stated Complaint: CP Time Seen by Provider: 09/04/24 14:34 Source: patient and lang interpreter ( Liberian Creole) Mode of arrival: ambulatory History of Present Illness ED Provider: Heidi HPI narrative: 79-year-old female with history of hypertension and diabetes states that she has been having chest pain for the past couple of weeks, the last episode was 2 days ago and not associated with exertion, she also reports that there was no associated diaphoresis or vomiting, no recent coughing, she is currently completely asymptomatic but states that her appointment was not until the so she wanted to come in to be seen. She readily endorses that she does not take all of her blood pressure medication. her history is significant for 3 prior strokes with residual right upper extremity symptoms. Related Data Previous Rx's ?Medication ?Instructions ?Recorded amlodipine 10 mg tablet 10 mg PO DAILY 90 days #90 tabs 05/27/24 aspirin 81 mg tablet,delayed 81 mg PO DAILY 90 days #90 tabs 05/27/24 release atorvastatin 40 mg tablet (Lipitor) 40 mg PO BEDTIME 90 days #90 tabs 05/27/24 blood sugar diagnostic (FreeStyle #50 ea 05/27/24 Lite Strips) blood-glucose meter (FreeStyle #1 ea 05/27/24 Lite Meter kit) hydralazine 25 mg tablet 25 mg PO TID 30 days #90 tabs 05/27/24 lactulose 10 gram/15 mL oral 10 g (15 mL) PO BID PRN 05/27/24 solution constipation 30 days #237 mL lancets 28 gauge (FreeStyle #100 ea 05/27/24 Lancets) losartan 100 mg tablet 100 mg PO DAILY 90 days #90 tabs 05/27/24 metformin 500 mg tablet 500 mg PO BID 90 days #180 tabs 05/27/24 sennosides 8.6 mg tablet (senna) 8.6 mg PO BEDTIME PRN constipation 05/27/24 90 days #90 tabs Allergies Allergy/AdvReac Type Severity Reaction Status Date / Time No Known Allergies Allergy Verified 09/04/24 10:00 Review of Systems Review of Systems: Pertinent positives and negatives as stated in HPI PMFSH Past Medical History Source: nursing notes reviewed Medical History CVA (cerebral vascular accident) Hypertension Surgical History No pertinent past surgical history Family History Family History Mother Hypertension Father No problems noted. Social History Social History Housing: House Alcohol intake: never Patient Tobacco Use Status: Never used Tobacco e-Cigarette/Vaping Use: Never Used Second Hand Smoke Exposure: No Advance Directives: Yes Advance Directives Information Provided: Yes Advance Directives on File: No service: No Current occupational status: disabled Cognitive needs: Yes Hearing needs: No Vision needs: Yes Physical Exam Vital Signs: Vital Signs: Last Vital Signs Temp 98 F 09/04/24 09:49 Pulse 97 09/04/24 14:42 Resp 18 09/04/24 14:42 BP 202/110 H 09/04/24 15:15 Pulse Ox 97 09/04/24 14:42 O2 Del Method Room Air 09/04/24 14:42 BMI result Body Mass Index 28.7 VITAL SIGNS: Reviewed. GENERAL: Elevated BMI,Well developed, well nourished, in no acute distress. HEAD: Normocephalic/atraumatic EYES: PERRLA, EOMI EARS: Ext canals without abnormality NOSE: Nares patent bilateral OROPHARYNX: no oral lesions noted, posterior pharynx clear NECK: Supple, no adenopathy LUNGS: Normal breath sounds. No adventitious sounds or accessory muscle use. SpO2<97> CARDIOVASCULAR: Regular rate and rhythm without noted murmurs ABDOMEN: Soft, non-tender, non-distended with bowel sounds. MUSCULOSKELETAL: No tenderness, deformities, or effusions noted on gross inspection. EXTREMITIES: No cyanosis, clubbing or edema. SKIN: Inspection of the skin reveals no rashes NEUROLOGIC: Alert and oriented x 4. Strength and sensation to light touch were grossly intact x 4, DENIS has hand clenched at baseline, able to fROM at shoulder. Medications Administered Discontinued Medications Generic Name Dose Route Start Last Admin Trade Name Freq PRN Reason Stop Dose Admin Hydralazine HCl 25 mg 09/04/24 15:04 09/04/24 15:15 Hydralazine Hcl 25 Mg Tablet PO 09/04/24 15:05 25 mg ONCE ONE Administration Protocol Medical Decision Making Medical Decision Making [facility] Narrative: 79-year-old female with history and clinical presentation, DD DX: Chest pain 2 days ago, EKG does not demonstrate any acute ischemic changes, patient has no pain at this time, pain does not to be associated with pleurisy, not consistent with a pericarditis, not consistent with a pneumonia as there is no reported cough/ fever/chills, does not appear to be a stable or unstable angina. Patient does have multiple risk factors and I do think that she should be more medication compliant and I had an approximate 10 minute conversation with the patient regarding the need to adhere to her blood pressure medication regimen as well as weight loss and dietary changes. EKG: Normal sinus rhythm, HR - 93, no STEMI, MA /QRS / QTC/ QTC are within normal limits. I reviewed and interpreted all investigations and there is no evidence of infectious leukocytosis, anemia, or thrombocytopenia. there is no demonstrated CHRISTOFER/ electrolyte derangements and high sensitivity troponin is undetectable. Chest x-ray is negative for infiltrate or venous congestion but there is evidence of cardiomegaly and otherwise my interpretation is in agreement with radiology's impression. Patient was provided with 25 mg of hydralazine and will evaluate patient for downward trend of blood pressure. Differential Diagnosis Differential Diagnoses: The differential diagnosis associated with the presentation includes See above Admission/Observation Consideration of admission/observation: Escalation of care including admission/observation considered this was considered but patient does not meet inpatient level of care. Lab Data [facility] Lab Attestation statement: I reviewed the patient's lab results. See above 09/04/24 09:47 09/04/24 09:47 Labs: Lab Results 09/04/24 Range/Units 09:47 WBC 5.6 (4.8-10.8) X10*3/uL RBC 5.22 (4.20-5.50) X10*6/uL Hgb 13.5 (12.0-16.0) g/dl Hct 40.3 (37.0-47.0) % MCV 77.2 L (80.0-98.0) fL MCH 25.9 L (27.0-33.0) pg MCHC 33.5 (31.0-35.0) g/dl RDW 14.8 (11.0-16.0) % Plt Count 206 (160-400) X10*3/uL MPV 11.3 (9.4-12.3) fL Immature Gran % (Auto) Cancelled Neut % (Auto) Cancelled Lymph % (Auto) Cancelled [place] % (Auto) Cancelled Eos % (Auto) Cancelled Baso % (Auto) Cancelled Lymph # (Auto) Cancelled [place] # (Auto) Cancelled Eos # (Auto) Cancelled Baso # (Auto) Cancelled Abs Immat Gran (auto) Cancelled Absolute Neuts (auto) Cancelled Absolute Nucleated RBC 0.000 (0.0-0.012) X10*3/uL Nucleated RBC % (auto) 0.0 (0.0-0.2) /100WBC Neutrophils % (Manual) 46 (45-73) % Band Neutrophils % 3 (3-5) % Lymphocytes % (Manual) 42 H (20-40) % Atypical Lymphs % (Man) 2 (0-6) % Monocytes % (Manual) 3 (2-11) % Eosinophils % (Manual) 2 (0-4) % Basophils % (Manual) 2 (0-2) % Abs Neuts (Manual) 2.7 (2.0-8.3) X10*3/uL Lymphocytes # (Manual) 2.4 (1.2-4.9) X10*3/uL Atyp Lymphs # (Manual) 0.1 x10*3/uL Monocytes # (Manual) 0.2 (0.1-1.2) X10*3/uL Eosinophils # (Manual) 0.1 (0.0-0.4) X10*3/uL Basophils # (Manual) 0.1 (0.0-0.2) X10*3/uL Platelet Estimate NORMAL (NORMAL) Large Platelets PRESENT Plt Morphology Comment NOTED RBC Morphology NORMAL Polychromasia 1+ (0-2) /OIF Hypochromasia 2+ (15-30) /OIF Target Cells 1+ (5-14) /OIF [place] Cells 1+ (0-2) /OIF Schistocytes 1+ (0-2) /OIF Sodium 139 (135-145) mmol/L Potassium 3.5 (3.3-5.1) mmol/L Chloride 106 (96-108) mmol/L Carbon Dioxide 25 (22-29) mmol/L Anion Gap 12 (12-20) BUN 12 (9-16) mg/dL Creatinine 1.01 (0.5-1.4) mg/dL Estim Creat Clear Calc 52.6 Estimated GFR 53 Random Glucose 131 H (60-115) mg/dL Calcium 10.5 H D (8.4-10.2) mg/dL Troponin I High Sens < 2.7 (<3.5-17.0) ng/L Independent Interpretation I performed an independent interpretation of an: EKG and Plain X-Ray Interpretation: see above Radiology Impression Discussion of test interpretation with radiology: I have reviewed the radiologist's reading. Radiologist Impression: see above Chronic Conditions Patient?s care impacted by: Diabetes, Hypertension and Other history CVA Discharge Plan Discharge Clinical Impression: Chest pain, Elevated blood pressure reading Patient Disposition: Home, Self-Care Instructions: Chest Pain (ED), DASH Eating Plan (ED), Hypertension (ED) Additional Instructions: Take all blood pressure medication as well as all other medications. Follow up with your PCP as scheduled. Return to the ER if you have any recurrence of chest pain with shortness of breath or speech/visual problems/difficulty walking Prescriptions: No Action hydralazine 25 mg tablet 25 mg PO TID 30 Days Qty: 90 6RF amlodipine 10 mg tablet 10 mg PO DAILY 90 Days Qty: 90 3RF aspirin 81 mg tablet,delayed release (DR/EC) 81 mg PO DAILY 90 Days Qty: 90 3RF atorvastatin [Lipitor] 40 mg tablet 40 mg PO BEDTIME 90 Days Qty: 90 3RF (DME) FreeStyle Lite Strips Strip See Rx Instructions .Route Qty: 50 6RF Rx Instructions: Use 1 test strip once a day (DME) blood-glucose meter [FreeStyle Lite Meter] Kit See Rx Instructions .Route Qty: 1 0RF Rx Instructions: As directed lactulose 10 gram/15 mL solution 10 g PO BID PRN (Reason: constipation) 30 Days Qty: 237 2RF (DME) lancets [FreeStyle Lancets] 28 gauge misc See Rx Instructions .Route Qty: 100 6RF Rx Instructions: Use 1 lancet once a day losartan 100 mg tablet 100 mg PO DAILY 90 Days Qty: 90 1RF metformin 500 mg tablet 500 mg PO BID 90 Days Qty: 180 3RF sennosides [senna] 8.6 mg tablet 8.6 mg PO BEDTIME PRN (Reason: constipation) 90 Days Qty: 90 0RF Referrals: Ángela Cantrell MD [Physician] - Print Language: Liberian [place]veland
[2024-09-04 15:44] VITALS: BP 169/89; PULSE 76; RESP 16; TEMP 37; O2SAT 98
[2024-09-04 16:02] VITALS: BP 169/89; PULSE 76; RESP 16; TEMP 37; O2SAT 98
== END 2024-09-04 16:10 | disposition home or self-care (01) ==
PROVIDERS: Emergency Provider Student in an Organized Health Care Education/Training Program
DX: R07.9 Chest pain, unspecified (principal); R03.0 Elevated blood-pressure reading, without diagnosis of hypertension; I10 Essential (primary) hypertension; Z86.73 Personal history of transient ischemic attack (TIA), and cerebral infarction without residual deficits
CPT/HCPCS: 36415; 71046; 80048; 84484; 85007; 85025; 85027; 93005; 99283; 99284

== ENCOUNTER → 2024-09-04 09:28 | Outpatient (BNV) | payer MEDICAID, SELFPAY | PROVIDERS: Emergency Provider Student in an Organized Health Care Education/Training Program; Visit Provider Internal Medicine Cardiovascular Disease | DX: R07.9 Chest pain, unspecified (principal) | CPT/HCPCS: 93010 ==

== ENCOUNTER 2024-10-14 09:53 | Outpatient (AMB) | payer MEDICAID, SELFPAY ==
[2024-10-14 10:01] VITALS: BP 220/90; BMI 30.7
--- NOTE | 2024-10-14 10:01 | A.OFFPC_ITS ---
Vital Signs 10/14/24 10:01 10/14/24 12:03 Height 5 ft 8 in Weight 202 lb BMI 30.7 BP 220/90 H 190/90 H Blood Pressure Location Lt brachial Lt brachial Position Sitting Sitting Intake Visit Reasons: dm Intake Note: Patient here for a follow up DM Dimensional Inspector Required: Yes Dimensional Inspector Language: Japanese Creole Dimensional Inspector Name: Gordy Whitehead Information Interpreted: clinical only Accompanied by: Friend Allergies No Known Allergies Allergy (Verified 10/14/24 10:23) Medication List - Last Reconciled 10/14/24 by Ángela Balbuena MD amlodipine 10 mg PO DAILY 90 days aspirin 81 mg PO DAILY 90 days atorvastatin (Lipitor) 40 mg PO BEDTIME 90 days blood sugar diagnostic (FreeStyle Lite Strips) Use 1 test strip once a day blood-glucose meter (FreeStyle Lite Meter kit) As directed hydralazine 25 mg PO TID 30 days lactulose 10 grams (15 mL) PO BID PRN 30 days lancets (FreeStyle Lancets) Use 1 lancet once a day losartan 100 mg PO DAILY 90 days metformin 500 mg PO BID 90 days sennosides (senna) 8.6 mg PO BEDTIME PRN 90 days Tobacco use date assessed: 10/14/24 Fall risk assessment: No Falls in past year Last assessed Fall Risk: 10/14/24 Dental Screening Dental Screen Date: 10/14/24 Did you have a dental visit in the last 12 months?: Yes Did you have a dental problem in the last 6 months where you did not have access to dental care?: No Was dental information given to patient?: Patient has dentist HPI HPI Comments History of Present Illness Details The patient is a 79-year-old female presenting for follow-up of diabetes and hypertension, with a recent history of elevated blood pressure and stroke. She has a history of chest pain and palpitations for which she sought emergency care in August, resulting in hospitalization. At that time, her blood pressure was notably elevated, and an EKG showed mild abnormalities, leading to a referral to cardiology. Currently, her medications for hypertension include amlodipine, aspirin, atorvastatin, and hydralazine. However, she reports non-adherence to the prescribed hydralazine regimen. Consequently, her blood pressure remains unacceptably high at 220/90. She also experiences constipation, infrequently defecating with minimal stool passage, potentially as a side effect of her medications. Additionally, following a stroke, she has been experiencing significant functional impairment, necessitating assistance with daily activities. 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 There is a request for a personal lines advisor to help address her difficulties in self-care and mobility, stemming from hemiplegia. [facility] Medical History (Updated 10/14/24 @ 10:44 by Ángela Balbuena MD) CVA (cerebral vascular accident) Hypertension Surgical History No pertinent past surgical history Family History Mother Hypertension Father No problems noted. Social History Housing: House Alcohol intake: never Patient Tobacco Use Status: Never used Tobacco e-Cigarette/Vaping Use: Never Used Second Hand Smoke Exposure: No service: No Current occupational status: disabled Cognitive needs: Yes Hearing needs: No Vision needs: Yes Questionnaire PHQ-9 Over the last 2 weeks, how often have you been bothered by any of the following problems? 1. Little interest or pleasure in doing things: not at all 2. Feeling down, depressed, or hopeless: not at all 3. Trouble falling or staying asleep, or sleeping too much: not at all 4. Feeling tired or having little energy: not at all 5. Poor appetite or overeating: not at all 6. Feeling bad about yourself - or that you are a failure or have let yourself or your family down: not at all 7. Trouble concentrating on things, such as reading the newspaper or watching television: not at all 8. Moving or speaking so slowly that other people could have noticed. Or the opposite - being so fidgety or restless that you have been moving around a lot more than usual: not at all 9. Thoughts that you would be better off or of hurting yourself in some way: not at all Total score: 0 Depression Screening Interpretation: Negative Depression Screening Done: Yes 90790 - PHQ-9 Billing: Yes Source: Developed by Drs. Guy Yun, Sunday Moss and colleagues, with an educational alex from [employer]. Thrive Questionnaire Date Thrive assessed: 10/14/24 I am a: Patient What is your living situation today?: I have a steady place to live Within the past 12 months, did the food you bought not last and you didn't have the money to get more?: Never true Within the past 12 months, did you worry whether your food would run out before you got money to buy more?: Never true Do you have trouble paying for medicines?: No Do you have trouble getting transportation to medical appointments?: No Do you have trouble paying your heating and electricity bill?: No Do you have trouble taking care of your child, family member or friend?: No Do you have trouble with day-to-day activities such as bathing, preparing meals, shopping, managing finances, etc.?: Yes Are you currently unemployed and looking for a job?: No Are you interested in more education?: No Please select the resources that you would like help with: None Currently or been in a relationship where the following occur: No concerns reported THRIVE Score: 0 AUDIT C Alcohol Use Questionnaire (AUDIT-C) 1. How often do you have a drink containing alcohol?: Never Total Score: 0 Score Reviewed/Action Taken: No DAXA-7 AMB Questionnaire DAXA-7 Date DAXA - 7 assessed: 10/14/24 Feeling nervous, anxious, or on edge: 0 = Not at all Not being able to stop or control worryin = Not at all Worrying too much about different things: 0 = Not at all Trouble relaxin = Not at all Being so restless that it is hard to sit still: 0 = Not at all Becoming easily annoyed or irritable: 0 = Not at all Feeling afraid as if something awful might happen: 0 = Not at all Total DAXA-7 score (0-4 normal; 5-9 mild; 10-14 moderate; 15-21 severe): 0 Source: Developed by Drs. Guy Yun, uSnday Moss and colleagues, with an educational alex from [employer]. DAXA-7 Assessment Billing DAXA-7 Assessment Tool: DAXA-7 Assessment 20847 Review of Systems Const All systems reviewed & are unremarkable except as noted in HPI and below Card Denies chest pain at rest, Denies chest pain with activity, Denies edema, Denies irregular heart rhythm, Denies claudication, Denies dyspnea, Denies dyspnea on exertion, Denies orthopnea, Denies paroxysmal nocturnal dyspnea and Denies slow heart rate Resp Denies cough, Denies dyspnea and Denies dyspnea on exertion GI Denies abdominal pain, Denies change in bowel habits, Denies excessive flatus, Denies nausea and Denies vomiting Physical exam (Primary Care) Vital Signs: Last Vital Signs BP 220/90 H 10/14/24 10:01 Care Plan Goal for BP management: Patient was advised to be compliant with her medications. Next steps: Recheck blood pressure in 3 weeks by nurse navigator. BMI result Body Mass Index 30.7 BMI Assessment/Plan discussion: High BMI High, discussed plan: lifestyle, weight reduction, dietary and physical activity Tobacco/Smoking Status: Tobacco use Status Tobacco use date assessed 10/14/24 10/14/24 10:07 Patient Tobacco Use Status Never used Tobacco 10/14/24 10:07 e-Cigarette/Vaping Use Never Used 10/14/24 10:07 PHQ-9: PHQ-9 Score PHQ-9: Total score 0 10/14/24 10:28 Depression Screening Interpretation: Negative Thrive Assessment: Date of Thrive Assessment Date Thrive assessed 10/14/24 10/14/24 10:15 Currently or been in a relationship where the following occur: No concerns reported Resp Effort & Inspection: normal respiratory effort Auscultation: clear to auscultation bilaterally Cardio Jugular venous distension: no JVD Rate: regular rate Rhythm: regular rhythm Heart sounds: S1 normal heart sound present and S2 normal heart sound present Neuro Motor exam (neuro): Abnormal motor strength present (2/5rue, 4/5 rle, 5/5lue, 5/5 lle) Office Procedures Flu Questionnaire Does the patient have a severe egg allergy?: No Results AMB Hemoglobin A1c AMB Hemoglobin A1c 6.4 % Last Edit by CESAR Hernandez on 10/14/24 10:1 4 Immunizations Fluarix Triv [id number] (PF) 45 mcg (15 mcg x 3)/0.5 mL IM syringe Performing Provider: Ángela Balbuena MD Performing Location: [facility] [place] [facility] Documented (not given) by: CESAR Hernandez on 10/14/24 10:14 Reason Not Given: Patient Refused Results Reviewed Results Reviewed: Laboratory Last Values Hgb A1c (Clinic) 6.4 % (4.0-6.0) H 10/14/24 10:00 Coding Level of Care Code Est Pt Level 4 (99357) Complex EM visit Add On G2211 Diagnoses CVA (cerebral vascular accident) I63.9 Right hemiplegia G81.91 Chronic idiopathic constipation K59.04 Abnormal EKG R94.31 Type 2 diabetes mellitus without complication, without long-term current use of insulin E11.9 Diabetes mellitus complication status: without complication Essential hypertension I10 Additional Codes DAXA-7 Assessment Billing - DAXA-7 Assessment Tool: DAXA-7 Assessment 59084 ([id number]) PHQ-9 - 65689 - PHQ-9 Billing: Yes ([id number]) Time Spent (min) 24 Assessment & Plan Assessment & Plan (1) CVA (cerebral vascular accident): Code(s): I63.9 - Cerebral infarction, unspecified Category: Medical (2) Right hemiplegia: Code(s): G81.91 - Hemiplegia, unspecified affecting right dominant side Category: Medical (3) Chronic idiopathic constipation: Code(s): K59.04 - Chronic idiopathic constipation Category: Medical (4) Abnormal EKG: Code(s): R94.31 - Abnormal electrocardiogram [ECG] [EKG] Category: Medical (5) Type 2 diabetes mellitus, without long-term current use of insulin: Code(s): E11.9 - Type 2 diabetes mellitus without complications Category: Medical Qualifiers: Diabetes mellitus complication status: without complication Qualified Code(s): E11.9 - Type 2 diabetes mellitus without complications (6) Essential hypertension: Code(s): I10 - Essential (primary) hypertension Category: Medical Plan - Address high blood pressure with emphasis on adherence to the prescribed hydralazine regimen and adjust other medications as necessary. - Referral to cardiology for further evaluation of heart condition. - Manage constipation by providing a twice-daily laxative as needed. - Assess and refer for diabetic eye exam and ensure up-to-date pneumonia vaccination. - Facilitate setting up a personal lines advisor through [facility] for assistance with daily activities. Patient was informed and verbally consented to the use of an ambient scribe for clinic note documentation during this visit. We discussed the importance of adhering to the medication regimen, specifically the prescribed frequency of hydralazine, to manage her elevated blood pressure. I emphasized that failure to consistently take her medications could lead to worsening cardiovascular conditions. A liquid laxative was suggested to manage her constipation, expected to alleviate her discomfort without causing significant side effects. The potential need for a cardiology referral for her mild EKG abnormality was noted. I advised on seeking an eye examination to monitor for diabetic retinopathy. Additionally, securing personal care assistance was a priority, and I confirmed the initial steps towards engaging [employer] PA[employer]MENT [employer]ER services. Orders: Orders Lipid Panel 4 Months E78.5 - Hyperlipidemia, unspecified Influenza [id number] Immunization Today Z23 - Encounter for immunization AMB Hemoglobin A1c Today E11.9 - Type 2 diabetes mellitus without complications Microalbumin, Random (w Creat) 4 Months R80.9 - Proteinuria, unspecified Comprehensive [place]. Panel Fast 4 Months E11.9 - Type 2 diabetes mellitus without complications Referrals Cardiology Referral R94.31 - Abnormal electrocardiogram [ECG] [EKG] Ophthalmology Referral E11.9 - Type 2 diabetes mellitus without complications Medications: Refilled lactulose 10 grams (15 mL) PO BID 30 days PRN 237 mL 2RF constipation Patient Instructions: - Take all prescribed medications exactly as directed, particularly hydralazine three times daily. - Use the provided liquid laxative as needed, up to twice daily, for constipation relief. - Schedule an appointment for a diabetic eye examination. - Ensure pneumonia vaccination is up to date. - Coordinate with insurance and [facility] for securing a personal lines advisor. - Return for follow-up blood pressure check in three weeks or sooner if symptoms worsen.
[2024-10-14 12:03] VITALS: BP 190/90
== END 2024-10-14 10:47 | disposition home or self-care (01) ==
PROVIDERS: PCP Internal Medicine; Visit Provider Internal Medicine
DX: E11.9 Type 2 diabetes mellitus without complications (principal); G81.91 Hemiplegia, unspecified affecting right dominant side; K59.04 Chronic idiopathic constipation; R94.31 Abnormal electrocardiogram [ECG] [EKG]; I10 Essential (primary) hypertension

== ENCOUNTER → 2024-10-14 09:53 | Outpatient (BNVA) | payer MEDICAID, SELFPAY | PROVIDERS: PCP Internal Medicine; Visit Provider Internal Medicine | DX: I63.9 Cerebral infarction, unspecified (principal); G81.91 Hemiplegia, unspecified affecting right dominant side; K59.04 Chronic idiopathic constipation; R94.31 Abnormal electrocardiogram [ECG] [EKG]; E11.9 Type 2 diabetes mellitus without complications; I10 Essential (primary) hypertension | CPT/HCPCS: 83036; 96127; 99212 ==

== ENCOUNTER → 2024-11-06 09:35 | Outpatient (BNVA) | payer MEDICAID, SELFPAY | PROVIDERS: PCP Internal Medicine ==

== ENCOUNTER 2024-12-13 14:46 | Emergency (ER) | payer MEDICAID, SELFPAY ==
--- NOTE | 2024-12-13 | ECG_ITS ---
Test Reason : chest pain Blood Pressure : */* mmHG Vent. Rate : 104 BPM Atrial Rate : 104 BPM P-R Int : 128 ms QRS Dur : 80 ms QT Int : 320 ms P-R-T Axes : 57 31 55 degrees QTcB Int : 420 ms Sinus tachycardia Nonspecific T wave abnormality Abnormal ECG When compared with ECG of 04-Sep-2024 09:39, No significant change was found Referred By: Generic ED Physician Electronically Signed By: JUSTIN LIU MD
--- NOTE | ~2024-12-13 | XR_ITS ---
CLINICAL HISTORY: chest pain 2 view chest x-ray Comparison: CR/SR - XR CHEST 2V - 09/04/24 10:07 EST Findings: The lungs are clear. Heart size is normal. No acute fracture. IMPRESSION: 1. No acute findings. This document has been electronically signed by: Zoraida Timmons MD on 12/13/2024 15:58:32
[2024-12-13 15:05] VITALS: BP 196/102; PULSE 127; RESP 18; TEMP 37.2; O2SAT 97; BMI 28.9
--- NOTE | 2024-12-13 15:05 | ED_ITS ---
HPI - Abdominal Pain General Chief Complaint: Chest Pain Stated Complaint: chest pain Time Seen by Provider: 12/13/24 15:52 History of Present Illness ED Provider: Keith CLARK narrative: The patient is a 79-year-old woman with a history of hypertension and diabetes and a stroke which has left her with some right-sided weakness. She presents today for evaluation of pains she has been experiencing intermittently for the last couple of days. She indicates that she feels the pain in her mid chest and on the sides of her chest and sometimes in her back. The episodes of pain can last between 2 and 3 minutes. She says that she had a few of these episodes yesterday but several during the night last night. At the moment that I was interviewing her she was having no symptoms at all. There has been no associated shortness of breath. No associated nausea or vomiting. No pain or swelling in her legs. She currently has no chest pain or pleuritic pain or abdominal pain. Related Data Previous Rx's ?Medication ?Instructions ?Recorded amlodipine 10 mg tablet 10 mg PO DAILY 90 days #90 tabs 05/27/24 aspirin 81 mg tablet,delayed 81 mg PO DAILY 90 days #90 tabs 05/27/24 release atorvastatin 40 mg tablet (Lipitor) 40 mg PO BEDTIME 90 days #90 tabs 05/27/24 blood sugar diagnostic (FreeStyle #50 ea 05/27/24 Lite Strips) blood-glucose meter (FreeStyle #1 ea 05/27/24 Lite Meter kit) hydralazine 25 mg tablet 25 mg PO TID 30 days #90 tabs 05/27/24 lancets 28 gauge (FreeStyle #100 ea 05/27/24 Lancets) losartan 100 mg tablet 100 mg PO DAILY 90 days #90 tabs 05/27/24 metformin 500 mg tablet 500 mg PO BID 90 days #180 tabs 05/27/24 sennosides 8.6 mg tablet (senna) 8.6 mg PO BEDTIME PRN constipation 05/27/24 90 days #90 tabs lactulose 10 gram/15 mL oral 10 g (15 mL) PO BID PRN 10/14/24 solution constipation 30 days #237 mL simethicone 180 mg capsule 180 mg PO BID PRN abdominal 12/13/24 discomfort/gas #20 caps Allergies Allergy/AdvReac Type Severity Reaction Status Date / Time No Known Allergies Allergy Verified 12/13/24 15:12 Review of Systems Review of Systems Yes all other systems are reviewed and are negative [facility] Past Medical History Medical History CVA (cerebral vascular accident) Hypertension Surgical History No pertinent past surgical history Family History Family History Mother Hypertension Father No problems noted. Social History Social History Housing: House Alcohol intake: never Patient Tobacco Use Status: Never used Tobacco Smoked in Last 30 Days: No e-Cigarette/Vaping Use: Never Used Second Hand Smoke Exposure: No Use of substances other than those prescribed or required for medical reasons: No Advance Directives: No Advance Directives Information Provided: No service: No Current occupational status: disabled Cognitive needs: Yes Hearing needs: No Vision needs: Yes Physical Exam ED Vital Signs: Vital Signs - 24 hr 12/13/24 15:05 12/13/24 15:45 12/13/24 16:00 Temperature 98.9 F Pulse Rate 127 H 93 103 H Respiratory Rate 18 22 H 23 H Blood Pressure 196/102 H 157/87 H 177/108 H Pulse Oximetry 97 95 96 Oxygen Delivery Method Room Air Room Air 12/13/24 18:03 Temperature 98.9 F Pulse Rate 81 Respiratory Rate 18 Blood Pressure 173/96 H Pulse Oximetry 99 Oxygen Delivery Method Room Air BMI result Body Mass Index 28.9 Const Other: The patient is awake and alert, pleasant and cooperative. She does not appear in acute distress. Her right hand is held in a somewhat contracted attitude. HENMT Other: Face is symmetrical. Mucous membranes moist. The posterior pharynx is unremarkable. Eyes Other: Pupils are round equal, extraocular movements are intact, conjunctivae clear Neck Neck: Yes full ROM, Yes no lymphadenopathy and Yes no JVD Resp Effort & Inspection: normal respiratory effort Auscultation: clear to auscultation bilaterally Cardio Rate: regular rate Rhythm: regular rhythm Heart sounds: S1 normal heart sound present and S2 normal heart sound present GI Other: Abdomen is soft and nontender Skin Other: Skin is dry and unremarkable Neuro Other: The patient is awake and alert with a normal mental status. Pupils are round equal, eye movements are intact, the face is symmetrical. She has right arm weakness with some contracture of the right hand which she says is chronic and related to a previous stroke. Left arm is normal. She seems to have intact strength in the legs. Extrem Other: No peripheral edema, no calf swelling or tenderness Course Course Course Narrative: This is a Rapid Medical Examination (RME) performed by Edgardo Lamb PA-C in triage. Full HPI, ROS, assessment and treatment plan per primary provider in the Main ED. Hx: 79 yo female hx DM, HTN, CVA w/ residual right hemiplegia here w/ epigastric pain/ left sided chest pain, radiating to back. compliant w/ HTN meds. took this morning. PE/vitals: hypertensive. 192/102 LUE, 198/99 RUE. tachycardic to 130s in triage. otherwise well appearing. charge accounts audit clerk aware at 1511 - patient to be brought back to main ED bed. Plan: labs, ekg, cxr, further eval Medical Decision Making Medical Decision Making [facility] Narrative: The patient is a 79-year-old woman who presents with fairly nonspecific symptoms of chest pain that she has had intermittently over the last couple of days. The episodes of discomfort last between 2 or 3 minutes. She describes having multiple episodes throughout the night. She also indicates that the locations in which she feels the discomfort is somewhat migratory. Clinically the patient was tachycardic and hypertensive when she arrived but her tachycardia resolved spontaneously. She did not appear acutely ill when I saw her and she was asymptomatic during my interview. She remained asymptomatic in the emergency room. Your EKG is unremarkable. Chest x-ray is unremarkable. She has 2 troponins which are normal. She has an undetectable D-dimer. Clinically I think she looks well and may be discharged. At discharge the patient indicated that she thinks her symptoms are related to some kind of intestinal gas syndrome. She would like something for that. I will prescribe simethicone. Lab Data 12/13/24 15:17 12/13/24 15:17 Labs: Lab Results 12/13/24 12/13/24 12/13/24 Range/Units 15:17 16:45 17:51 WBC 6.0 (4.8-10.8) X10*3/uL RBC 5.32 (4.20-5.50) X10*6/uL Hgb 13.7 (12.0-16.0) g/dl Hct 40.9 (37.0-47.0) % MCV 76.9 L (80.0-98.0) fL MCH 25.8 L (27.0-33.0) pg MCHC 33.5 (31.0-35.0) g/dl RDW 14.9 (11.0-16.0) % Plt Count 249 (160-400) X10*3/uL MPV 10.8 (9.4-12.3) fL Immature Gran % (Auto) Cancelled Neut % (Auto) Cancelled Lymph % (Auto) Cancelled [place] % (Auto) Cancelled Eos % (Auto) Cancelled Baso % (Auto) Cancelled Lymph # (Auto) Cancelled [place] # (Auto) Cancelled Eos # (Auto) Cancelled Baso # (Auto) Cancelled Abs Immat Gran (auto) Cancelled Absolute Neuts (auto) Cancelled Absolute Nucleated RBC 0.000 (0.0-0.012) X10*3/uL Nucleated RBC % (auto) 0.0 (0.0-0.2) /100WBC Neutrophils % (Manual) 38 L (45-73) % Band Neutrophils % 0 L (3-5) % Lymphocytes % (Manual) 49 H (20-40) % Atypical Lymphs % (Man) 2 (0-6) % Monocytes % (Manual) 7 (2-11) % Eosinophils % (Manual) 1 (0-4) % Basophils % (Manual) 3 H (0-2) % Abs Neuts (Manual) 2.3 (2.0-8.3) X10*3/uL Lymphocytes # (Manual) 2.9 (1.2-4.9) X10*3/uL Atyp Lymphs # (Manual) 0.1 x10*3/uL Monocytes # (Manual) 0.4 (0.1-1.2) X10*3/uL Eosinophils # (Manual) 0.1 (0.0-0.4) X10*3/uL Basophils # (Manual) 0.2 (0.0-0.2) X10*3/uL Platelet Estimate NORMAL (NORMAL) Plt Morphology Comment NORMAL RBC Morphology NOTED Ovalocytes 1+ (5-14) /OIF D-Dimer High Sensitivty < 150 NG/ML Sodium 139 (135-145) mmol/L Potassium 4.1 (3.3-5.1) mmol/L Chloride 105 (96-108) mmol/L Carbon Dioxide 22 (22-29) mmol/L Anion Gap 16 (12-20) BUN 12 (9-16) mg/dL Creatinine 0.78 (0.5-1.4) mg/dL Estim Creat Clear Calc 70.6 Estimated GFR > 60 Random Glucose 133 H (60-115) mg/dL Calcium 11.3 H D (8.4-10.2) mg/dL Magnesium 1.8 (1.6-2.6) mg/dL Total Bilirubin 0.9 (0.0-1.0) mg/dL Direct Bilirubin 0.2 (0.0-0.5) mg/dL AST 29 (5-31) U/L ALT 21 (0-31) U/L Alkaline Phosphatase 113 (39-117) U/L Troponin I High Sens < 2.7 3.3 (<3.5-17.0) ng/L C-Reactive Protein 0.49 (< or = 0.50) mg/dL B-Natriuretic Peptide 20 (<100) pg/mL Total Protein 8.8 H (6.5-8.0) g/dL Albumin 4.3 (3.5-5.0) g/dL TSH 0.90 (0.32-4.0) uIU/mL Urine Color Yellow Urine Appearance Clear Urine pH 7.5 (5.0-9.0) Ur Specific [place] 1.010 (1.005-1.025) Urine Protein Negative (Neg-Trace) mg/dL Urine Glucose (UA) Negative (Negative) mg/dL Urine Ketones Negative (Negative) mg/dL Urine Blood Negative (Negative) Urine Nitrite Positive H (Negative) Ur Leukocyte Esterase Negative (Negative) Urine RBC 0-2 (0-2) /HPF Urine WBC 0-5 (0-5) /HPF Ur Squamous Epith Cells 3-5 (0-2) /HPF Urine Bacteria 4+ (None Seen) Hyaline Casts 0-2 (0-2) /LPF Influenza Type A (PCR) NEGATIVE (Negative) Influenza Type B (PCR) NEGATIVE (Negative) RSV RNA Qual (PCR) NEGATIVE (Negative) SARS-CoV-2 RNA (RT-PCR) NEGATIVE (Negative) Independent Interpretation I performed an independent interpretation of an: EKG Interpretation: EKG at 14:55 shows sinus tachycardia at 104 beats per minute. There are nonspecific T-wave abnormalities. No significant change from previous. Discharge Plan Discharge Clinical Impression: Chest pain Patient Disposition: Home, Self-Care Additional Instructions: Your testing in the emergency room today is very reassuring. Please continue your regular medications. I have sent a prescription for a medication called simethicone which may help with symptoms of gas. Please contact your regular doctor's office for a follow up appointment sometime in the next few weeks. Return to the emergency room if significantly worse. Prescriptions: New simethicone 180 mg capsule 180 mg PO BID PRN (Reason: abdominal discomfort/gas) Qty: 20 0RF No Action hydralazine 25 mg tablet 25 mg PO TID 30 Days Qty: 90 6RF amlodipine 10 mg tablet 10 mg PO DAILY 90 Days Qty: 90 3RF aspirin 81 mg tablet,delayed release (DR/EC) 81 mg PO DAILY 90 Days Qty: 90 3RF atorvastatin [Lipitor] 40 mg tablet 40 mg PO BEDTIME 90 Days Qty: 90 3RF (DME) FreeStyle Lite Strips Strip See Rx Instructions .Route Qty: 50 6RF Rx Instructions: Use 1 test strip once a day (DME) blood-glucose meter [FreeStyle Lite Meter] Kit See Rx Instructions .Route Qty: 1 0RF Rx Instructions: As directed (DME) lancets [FreeStyle Lancets] 28 gauge misc See Rx Instructions .Route Qty: 100 6RF Rx Instructions: Use 1 lancet once a day losartan 100 mg tablet 100 mg PO DAILY 90 Days Qty: 90 1RF metformin 500 mg tablet 500 mg PO BID 90 Days Qty: 180 3RF sennosides [senna] 8.6 mg tablet 8.6 mg PO BEDTIME PRN (Reason: constipation) 90 Days Qty: 90 0RF lactulose 10 gram/15 mL solution 10 g PO BID PRN (Reason: constipation) 30 Days Qty: 237 2RF Referrals: Ángela Cantrell MD [Primary Care Provider] - (chest pain) Print Language: Paraguayanjt Stewart
[2024-12-13 15:29] LABS: Hematocrit 40.9 % (37.0-47.0); Hemoglobin 13.7 g/dl (12.0-16.0); Mean Corpuscular HGB Conc 33.5 g/dl (31.0-35.0); Mean Corpuscular Hemoglobin 25.8 pg (27.0-33.0); Mean Corpuscular Volume 76.9 fL (80.0-98.0); Mean Platelet Volume 10.8 fL (9.4-12.3); Platelet Count 249 X10*3/uL (160-400); Red Blood Count 5.32 X10*6/uL (4.20-5.50); Red Cell Distribution Width 14.9 % (11.0-16.0)
[2024-12-13 15:31] LABS: WBC ABN SCTR FOR CBC 1
[2024-12-13 15:45] VITALS: BP 157/87; PULSE 93; RESP 22; O2SAT 95
[2024-12-13 15:51] LABS: Alanine Aminotransferase 21 U/L (0-31); Albumin Level 4.3 g/dL (3.5-5.0); Anion Gap 16 (12-20); Aspartate Amino Transferase 29 U/L (5-31); Bilirubin Direct 0.2 mg/dL (0.0-0.5); Bilirubin Total 0.9 mg/dL (0.0-1.0); Blood Urea Nitrogen 12 mg/dL (9-16); Calcium 11.3 mg/dL (8.4-10.2); Carbon Dioxide 22 mmol/L (22-29); Chloride 105 mmol/L (96-108); Creatinine Clr Calc Pharmacy 70.6; Estimated Glomerular Filt Rate > 60; Glucose Random 133 mg/dL (60-115); Magnesium 1.8 mg/dL (1.6-2.6); Potassium 4.1 mmol/L (3.3-5.1); Sodium 139 mmol/L (135-145); Total Protein 8.8 g/dL (6.5-8.0)
[2024-12-13 15:59] LABS: Troponin-I High Sensitivity < 2.7 ng/L (<3.5-17.0)
[2024-12-13 16:00] VITALS: BP 177/108; PULSE 103; RESP 23; O2SAT 96
[2024-12-13 16:09] LABS: Alkaline Phosphatase 113 U/L (39-117)
[2024-12-13 16:20] LABS: Atypical Lymphs Percent Manual 2 % (0-6); Basophils Percent Manual 3 % (0-2); Eosinophils Percent Manual 1 % (0-4); Lymphocytes Percent Manual 49 % (20-40); Monocytes Percent Manual 7 % (2-11); Neutrophils Percent Manual 38 % (45-73)
[2024-12-13 16:21] LABS: Ovalocytes 1+ (5-14) /OIF; Platelet Estimate NORMAL (NORMAL); Platelet Morphology Comment NORMAL; RBC Morphology NOTED
[2024-12-13 16:22] LABS: Band Neutrophils Percent 0 % (3-5)
[2024-12-13 16:23] LABS: Atypical Lymph Absolute Manual 0.1 x10*3/uL; Basophils Abs Manual 0.2 X10*3/uL (0.0-0.2); Eosinophils Absolute Manual 0.1 X10*3/uL (0.0-0.4); Lymphocytes Absolute Manual 2.9 X10*3/uL (1.2-4.9); Monocytes Absolute Manual 0.4 X10*3/uL (0.1-1.2); Neutrophils Absolute Manual 2.3 X10*3/uL (2.0-8.3)
[2024-12-13 16:51] LABS: Appearance Urine Clear; Color Urine Yellow; Glucose Urine UA Negative (Negative); Leukocyte Esterase Urine Negative (Negative); Nitrite Urine Positive (Negative); PH 7.5 (5.0-9.0); UMIC TRIGGER UACC YES; Urine Blood Negative (Negative); Urine Ketones Negative (Negative); Urine Protein Negative (Neg-Trace)
[2024-12-13 16:59] LABS: B Type Natriuretic Peptide 20 pg/mL (<100)
[2024-12-13 17:08] LABS: Bacteria Urine 4+ (None Seen); Hyaline Casts Urine 0-2 /LPF (0-2); RBC Urine 0-2 /HPF (0-2); UACC Culture Trigger YES; WBC Urine 0-5 /HPF (0-5)
[2024-12-13 17:35] LABS: Influenza A PCR NEGATIVE (Negative); Influenza B PCR NEGATIVE (Negative); Resp Syncy Virus RNA Qual PCR NEGATIVE (Negative); SARS COV2 PCR INHOUSE NEGATIVE (Negative)
[2024-12-13 18:03] VITALS: BP 173/96; PULSE 81; RESP 18; TEMP 37.2; O2SAT 99
[2024-12-13 18:09] LABS: D Dimer High Sensitivity < 150 NG/ML
[2024-12-13 18:17] LABS: Troponin-I High Sensitivity 3.3 ng/L (<3.5-17.0)
[2024-12-13 18:47] LABS: C Reactive Protein 0.49 mg/dL (< or = 0.50)
[2024-12-13 19:13] VITALS: BP 167/98; PULSE 89; RESP 16; TEMP 36.8; O2SAT 98
== END 2024-12-13 19:14 | disposition home or self-care (01) ==
PROVIDERS: Physician Assistant Medical; Emergency Provider Emergency Medicine; PCP Internal Medicine
DX: R07.9 Chest pain, unspecified (principal); I10 Essential (primary) hypertension; E11.9 Type 2 diabetes mellitus without complications; R53.1 Weakness; R00.0 Tachycardia, unspecified; Z03.818 Encounter for observation for suspected exposure to other biological agents ruled out
CPT/HCPCS: 0241U; 36415; 71046; 80048; 80076; 81001; 81003; 83735; 83880; 84443; 84484; 85007; 85025; 85027; 85379; 86140; 87086; 87088; 87186; 93005; 99284; 99285

== ENCOUNTER → 2024-12-13 14:55 | Outpatient (BNV) | payer MEDICAID, SELFPAY | PROVIDERS: Emergency Provider Emergency Medicine; PCP Internal Medicine; Visit Provider Internal Medicine Cardiovascular Disease | DX: R00.0 Tachycardia, unspecified (principal) | CPT/HCPCS: 93010 ==

== ENCOUNTER → 2024-12-13 15:09 | Outpatient (BNV) | payer MEDICAID, SELFPAY | PROVIDERS: Emergency Provider Emergency Medicine; PCP Internal Medicine; Visit Provider Radiology Diagnostic Radiology | DX: R07.9 Chest pain, unspecified (principal) | CPT/HCPCS: 71046 ==

== ENCOUNTER 2025-01-15 15:10 | Emergency (ER) | payer MEDICAID, SELFPAY ==
--- NOTE | ~2025-01-15 | XR_ITS ---
CLINICAL HISTORY: pain Single view of the abdomen. COMPARISON: None FINDINGS: Normal bowel distention. Pelvic phleboliths present No pneumoperitoneum identified. Moderate colonic stool burden. No fracture identified. Moderate lower lumbar spondylosis. Visualized portions of the lung bases were unremarkable. IMPRESSION: 1. Nonspecific nonobstructive bowel gas pattern. 2. Moderate colonic stool burden. This document has been electronically signed by: Morris Collins MD on 01/15/2025 17:47:36
[2025-01-15 15:14] VITALS: BP 160/91; PULSE 106; RESP 16; TEMP 36.6; O2SAT 95; BMI 33.2
--- NOTE | 2025-01-15 15:18 | ED_ITS ---
HPI - General Adult General Chief complaint: Abdominal Pain Stated complaint: Chest Pain, Back Pain, Lower Abd Pain Time Seen by Provider: 01/15/25 16:06 Source: patient Limitations: language barrier History of Present Illness ED Provider: Delma Eastman PA-C HPI narrative: 79-year-old female with a history of HTN, HLD, DM, CVA w/ residual right-sided weakness, morbid obesity, chronic constipation, presents with multiple complaints. Patient states she was seen a month ago with similar presentation, she is complaining of lower abdomen, low back pain, increased urinary frequently at night of unclear duration. She is unable to describe the nature of her low back and lower abdominal discomfort, the patient continues to repeat ?I was here for the same thing a month ago?. Denies nausea vomiting diarrhea or dysuria. No fevers. Patient states she does not have a bowel movement every day, she had 1 yesterday it was a minimal, passing only small amount of hard stool. Denies abdominal distention or inability to pass flatus. Related Data Previous Rx's ?Medication ?Instructions ?Recorded amlodipine 10 mg tablet 10 mg PO DAILY 90 days #90 tabs 05/27/24 aspirin 81 mg tablet,delayed 81 mg PO DAILY 90 days #90 tabs 05/27/24 release atorvastatin 40 mg tablet (Lipitor) 40 mg PO BEDTIME 90 days #90 tabs 05/27/24 blood sugar diagnostic (FreeStyle #50 ea 05/27/24 Lite Strips) blood-glucose meter (FreeStyle #1 ea 05/27/24 Lite Meter kit) hydralazine 25 mg tablet 25 mg PO TID 30 days #90 tabs 05/27/24 lancets 28 gauge (FreeStyle #100 ea 05/27/24 Lancets) losartan 100 mg tablet 100 mg PO DAILY 90 days #90 tabs 05/27/24 metformin 500 mg tablet 500 mg PO BID 90 days #180 tabs 05/27/24 sennosides 8.6 mg tablet (senna) 8.6 mg PO BEDTIME PRN constipation 05/27/24 90 days #90 tabs lactulose 10 gram/15 mL oral 10 g (15 mL) PO BID PRN 10/14/24 solution constipation 30 days #237 mL simethicone 180 mg capsule 180 mg PO BID PRN abdominal 12/13/24 discomfort/gas #20 caps cefuroxime axetil 250 mg tablet 250 mg PO BID 7 days #14 tabs 12/17/24 docusate sodium 100 mg capsule 100 mg PO BID #14 caps 01/15/25 (Colace) polyethylene glycol 3350 17 gram 17 g PO TID #30 ea 01/15/25 oral powder packet (Miralax) Allergies Allergy/AdvReac Type Severity Reaction Status Date / Time No Known Allergies Allergy Verified 01/15/25 15:21 Review of Systems 2 Review of Systems: Yes all other systems are reviewed and are negative Constitutional: Constitutional: Denies fatigue and Denies fever(s) Cardiovascular: Cardiovascular: Denies chest pain and Denies dyspnea Respiratory: Respiratory: Denies cough and Denies dyspnea Gastrointestinal: Gastrointestinal: Reports abdominal pain, Reports constipation, Denies diarrhea, Denies nausea and Denies vomiting Genitourinary: Genitourinary: Denies dysuria Endocrine: Endocrine: Denies fatigue PMFSH Past Medical History Attestation statement: The following information was validated with the patient. Medical History CVA (cerebral vascular accident) Hypertension Surgical History No pertinent past surgical history Family History Family History Mother Hypertension Father No problems noted. Social History Social History Housing: House Alcohol intake: never Patient Tobacco Use Status: Never used Tobacco Smoked in Last 30 Days: No e-Cigarette/Vaping Use: Never Used Second Hand Smoke Exposure: No Use of substances other than those prescribed or required for medical reasons: No Advance Directives: No Advance Directives Information Provided: No service: No Current occupational status: disabled Cognitive needs: Yes Hearing needs: No Vision needs: Yes Physical Exam ED Vital Signs: Vital Signs - 24 hr 01/15/25 15:14 01/15/25 16:42 Temperature 97.8 F 98.1 F Pulse Rate 106 H 78 Respiratory Rate 16 16 Blood Pressure 160/91 H 159/80 H Pulse Oximetry 95 100 Oxygen Delivery Method Room Air Room Air BMI result Body Mass Index 33.2 Const Other: Alert well-appearing Orientation/consciousness: patient oriented x3 Resp Effort & Inspection: normal respiratory effort Cardio Other: Normal peripheral perfusion GI Other: Abdomen is soft, nondistended, obese, nontender no guarding Skin Other: Warm dry no rash Neuro General: patient oriented x3, gait normal, no focal motor deficits and CN's II- XI intact bilaterally Psych Other: Cooperative Course Course Course Narrative: This is a Rapid Medical Examination (RME) performed by Edgardo Lamb PA-C in triage. Full HPI, ROS, assessment and treatment plan per primary provider in the Main ED. 01/15/25 1523 EMILY [place] Hx: 79 yo female hx HTN, DM, CVA w/ residual right-sided weakness here w/ low back, lower abdominal pain, palpitations, nocturia. on review of visit on 12/13/24 - Urine culture positive for infection. She was contacted to be started on antibiotic, she did not answer. Letter was sent. Antibiotic was sent to her pharmacy however she never picked this up. has appointment w/ pcp in february. PE/vitals: Well-appearing Plan: Labs, UA Medical Decision Making Medical Decision Making MDM Narrative: 79-year-old female with a history of HTN, HLD, DM, CVA w/ residual right-sided weakness, morbid obesity, chronic constipation, presents with multiple complaints. Patient states she was seen a month ago with similar presentation, she is complaining of lower abdomen, low back pain, increased urinary frequently at night of unclear duration. She is unable to describe the nature of her low back and lower abdominal discomfort, the patient continues to repeat ?I was here for the same thing a month ago?. Denies nausea vomiting diarrhea or dysuria. No fevers. Patient states she does not have a bowel movement every day, she had 1 yesterday it was a minimal, passing only small amount of hard stool. Denies abdominal distention or inability to pass flatus. Problem: Diabetes, hypertension, hyperlipidemia, chronic constipation History: Per patient I have considered the following differential diagnoses: Constipation, fecal impaction, bowel obstruction, UTI, renal colic Plan: Patient here with a very vague symptoms of unclear duration of time. Screening labs and a urinalysis were already obtained from triage everything is unremarkable. I am adding on a KUB to assess for stool burden. To note, she does not have obstructive symptoms at this time, she was not require advanced imaging in the way of a CT scan. I have independently reviewed the following tests: Labs: No leukocytosis, not anemic, no electrolyte abnormality noted, urine not infected KUB:FINDINGS: Normal bowel distention. Pelvic phleboliths present No pneumoperitoneum identified. Moderate colonic stool burden. No fracture identified. Moderate lower lumbar spondylosis. Visualized portions of the lung bases were unremarkable. IMPRESSION: 1. Nonspecific nonobstructive bowel gas pattern. 2. Moderate colonic stool burden. Lab Data 01/15/25 15:54 01/15/25 15:54 Labs: Lab Results 01/15/25 01/15/25 Range/Units 15:54 16:57 WBC 5.1 (4.8-10.8) X10*3/uL RBC 5.44 (4.20-5.50) X10*6/uL Hgb 13.8 (12.0-16.0) g/dl Hct 41.9 (37.0-47.0) % MCV 77.0 L (80.0-98.0) fL MCH 25.4 L (27.0-33.0) pg MCHC 32.9 (31.0-35.0) g/dl RDW 14.6 (11.0-16.0) % Plt Count 222 (160-400) X10*3/uL MPV 11.2 (9.4-12.3) fL Immature Gran % (Auto) Cancelled Neut % (Auto) Cancelled Lymph % (Auto) Cancelled [place] % (Auto) Cancelled Eos % (Auto) Cancelled Baso % (Auto) Cancelled Lymph # (Auto) Cancelled [place] # (Auto) Cancelled Eos # (Auto) Cancelled Baso # (Auto) Cancelled Abs Immat Gran (auto) Cancelled Absolute Neuts (auto) Cancelled Absolute Nucleated RBC 0.000 (0.0-0.012) X10*3/uL Nucleated RBC % (auto) 0.0 (0.0-0.2) /100WBC Neutrophils % (Manual) 53 (45-73) % Band Neutrophils % 3 (3-5) % Lymphocytes % (Manual) 33 (20-40) % Atypical Lymphs % (Man) 2 (0-6) % Monocytes % (Manual) 9 (2-11) % Abs Neuts (Manual) 2.9 (2.0-8.3) X10*3/uL Lymphocytes # (Manual) 1.7 (1.2-4.9) X10*3/uL Atyp Lymphs # (Manual) 0.1 x10*3/uL Monocytes # (Manual) 0.5 (0.1-1.2) X10*3/uL Platelet Estimate NORMAL (NORMAL) Plt Morphology Comment NORMAL RBC Morphology NOTED Target Cells 1+ (5-14) /OIF Ovalocytes 1+ (5-14) /OIF Schistocytes 1+ (0-2) /OIF Sodium 139 (135-145) mmol/L Potassium 4.1 (3.3-5.1) mmol/L Chloride 106 (96-108) mmol/L Carbon Dioxide 26 (22-29) mmol/L Anion Gap 11 L (12-20) BUN 12 (9-16) mg/dL Creatinine 0.79 (0.5-1.4) mg/dL Estim Creat Clear Calc 65.1 Estimated GFR > 60 Random Glucose 111 (60-115) mg/dL Calcium 11.0 H (8.4-10.2) mg/dL Magnesium 1.9 (1.6-2.6) mg/dL Total Bilirubin 0.8 (0.0-1.0) mg/dL AST 28 (5-31) U/L ALT 21 (0-31) U/L Alkaline Phosphatase 105 (39-117) U/L Total Protein 7.8 (6.5-8.0) g/dL Albumin 4.2 (3.5-5.0) g/dL Lipase 29 (8-78) U/L Urine Color Yellow Urine Appearance Clear Urine pH 7.5 (5.0-9.0) Ur Specific [place] 1.010 (1.005-1.025) Urine Protein Negative (Neg-Trace) mg/dL Urine Glucose (UA) Negative (Negative) mg/dL Urine Ketones Negative (Negative) mg/dL Urine Blood Negative (Negative) Urine Nitrite Negative (Negative) Ur Leukocyte Esterase Negative (Negative) Discharge Plan Discharge Clinical Impression: Constipation Patient Disposition: Home, Self-Care Instructions: Constipation (ED) Additional Instructions: All of your screening labs were completely normal, you do not have a urinary tract infection. You were found to be considerably constipated. See home care instructions. Take the Colace, this is a stool softener, twice a day. Take the MiraLax 3 to 4 times a day, until you begin having multiple large volume bowel movements. Once you evacuate your current stool burden, you need to stay on a bowel regimen to help maintain regularity. Perhaps take the Colace daily, and the MiraLax daily. You will have to determine what dosing works for you. Follow up with your primary care provider as needed. Prescriptions: New docusate sodium [Colace] 100 mg capsule 100 mg PO BID Qty: 14 0RF polyethylene glycol 3350 [Miralax] 17 gram powder in packet 17 g PO TID Qty: 30 0RF No Action simethicone 180 mg capsule 180 mg PO BID PRN (Reason: abdominal discomfort/gas) Qty: 20 0RF cefuroxime axetil 250 mg tablet 250 mg PO BID 7 Days Qty: 14 0RF hydralazine 25 mg tablet 25 mg PO TID 30 Days Qty: 90 6RF amlodipine 10 mg tablet 10 mg PO DAILY 90 Days Qty: 90 3RF aspirin 81 mg tablet,delayed release (DR/EC) 81 mg PO DAILY 90 Days Qty: 90 3RF atorvastatin [Lipitor] 40 mg tablet 40 mg PO BEDTIME 90 Days Qty: 90 3RF (DME) FreeStyle Lite Strips Strip See Rx Instructions .Route Qty: 50 6RF Rx Instructions: Use 1 test strip once a day (DME) blood-glucose meter [FreeStyle Lite Meter] Kit See Rx Instructions .Route Qty: 1 0RF Rx Instructions: As directed (DME) lancets [FreeStyle Lancets] 28 gauge misc See Rx Instructions .Route Qty: 100 6RF Rx Instructions: Use 1 lancet once a day losartan 100 mg tablet 100 mg PO DAILY 90 Days Qty: 90 1RF metformin 500 mg tablet 500 mg PO BID 90 Days Qty: 180 3RF sennosides [senna] 8.6 mg tablet 8.6 mg PO BEDTIME PRN (Reason: constipation) 90 Days Qty: 90 0RF lactulose 10 gram/15 mL solution 10 g PO BID PRN (Reason: constipation) 30 Days Qty: 237 2RF Print Language: [place] Creole
[2025-01-15 16:05] LABS: Hematocrit 41.9 % (37.0-47.0); Hemoglobin 13.8 g/dl (12.0-16.0); Mean Corpuscular HGB Conc 32.9 g/dl (31.0-35.0); Mean Corpuscular Hemoglobin 25.4 pg (27.0-33.0); Mean Platelet Volume 11.2 fL (9.4-12.3); Platelet Count 222 X10*3/uL (160-400); Red Blood Count 5.44 X10*6/uL (4.20-5.50); Red Cell Distribution Width 14.6 % (11.0-16.0)
[2025-01-15 16:06] LABS: WBC ABN SCTR FOR CBC 1
[2025-01-15 16:07] LABS: White Blood Count 5.1 X10*3/uL (4.8-10.8)
[2025-01-15 16:13] LABS: Alanine Aminotransferase 21 U/L (0-31); Albumin Level 4.2 g/dL (3.5-5.0); Alkaline Phosphatase 105 U/L (39-117); Anion Gap 11 (12-20); Aspartate Amino Transferase 28 U/L (5-31); Bilirubin Total 0.8 mg/dL (0.0-1.0); Blood Urea Nitrogen 12 mg/dL (9-16); Carbon Dioxide 26 mmol/L (22-29); Chloride 106 mmol/L (96-108); Creatinine Clr Calc Pharmacy 65.1; Estimated Glomerular Filt Rate > 60; Glucose Random 111 mg/dL (60-115); Lipase 29 U/L (8-78); Magnesium 1.9 mg/dL (1.6-2.6); Potassium 4.1 mmol/L (3.3-5.1); Sodium 139 mmol/L (135-145); Total Protein 7.8 g/dL (6.5-8.0)
--- OUTSIDE RECORDS SUMMARY | 2025-01-15 16:22 | XMS_ITS | Clinical Summary ---
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 Name Role Phone Unavailable Primary Care Provider Unavailabl e Social History Tobacco Use Types Packs/Day Years Used Date Smoking Tobacco: Never Assessed Comments Unknown Sex and Gender Information Value Date Recorded Sex Assigned at Female 10/09/2022 1:41 PM EST Legal Sex Female 12:44 PM EST Gender Identity Female 10/09/2022 1:41 PM EST Sexual Orientation Not on file Plan of Treatment Health Maintenance Due Date Last Done Comments Depression Screening 1945 SDOH Screening 1945 Alcohol/Substance Use Screening 1958 Tobacco Screening 1958 Hepatitis C Screening 02/22/1964 DTaP/Tdap/Td Vaccines (1 - Tdap) 1965 Pneumococcal Vaccine: 50+ Ye ars (1 of 1 - PCV) 02/22/1996 Zoster Vaccines (1 of 2) 02/22/1996 RSV Patients and Pa tients Aged 60 years or older (1 - 1-dose 75+ series) 2021 COVID-19 Vaccine (2023-2 5 season) 2024 Influenza Vaccine (#1) 2024 HIB Vaccines Aged Out No longer eligi ble based on patient's age to complete this topic HPV Vaccines Aged Out No longer eligi ble based on patient's age to complete this topic Hepatitis A Vaccines Aged Out No long er eligible based on patient's age to complete this topic Hepatitis B Vaccines Aged Out No long er eligible based on patient's age to complete this topic IPV Vaccines Aged Out No longer eligi ble based on patient's age to complete this topic Meningococcal Vaccine Aged Out No aydee evangelina eligible based on patient's age to complete this topic RSV under 20 months Aged Out No longe r eligible based on patient's age to complete this topic Rotavirus Vaccines Aged Out No longer eligible based on patient's age to complete this topic Insurance [employer]
[2025-01-15 16:42] VITALS: BP 159/80; PULSE 78; RESP 16; TEMP 36.7; O2SAT 100
[2025-01-15 17:07] LABS: Appearance Urine Clear; Color Urine Yellow; Glucose Urine UA Negative (Negative); Leukocyte Esterase Urine Negative (Negative); Nitrite Urine Negative (Negative); PH 7.5 (5.0-9.0); Urine Blood Negative (Negative); Urine Ketones Negative (Negative); Urine Protein Negative (Neg-Trace)
--- NOTE | 2025-01-15 17:16 | PC.NURSE ---
patient a&ox3, labs drawn, urine obtained, pt awaiting radiology, pt currently denying pain/discomfort, call bryson within reach, plan of care ongoing
[2025-01-15 17:21] LABS: Atypical Lymph Absolute Manual 0.1 x10*3/uL; Atypical Lymphs Percent Manual 2 % (0-6); Band Neutrophils Percent 3 % (3-5); Lymphocytes Absolute Manual 1.7 X10*3/uL (1.2-4.9); Lymphocytes Percent Manual 33 % (20-40); Monocytes Absolute Manual 0.5 X10*3/uL (0.1-1.2); Monocytes Percent Manual 9 % (2-11); Neutrophils Absolute Manual 2.9 X10*3/uL (2.0-8.3); Neutrophils Percent Manual 53 % (45-73)
[2025-01-15 17:22] LABS: Ovalocytes 1+ (5-14) /OIF; RBC Morphology NOTED; Target Cells 1+ (5-14) /OIF
[2025-01-15 17:23] LABS: Schistocytes 1+ (0-2) /OIF
[2025-01-15 17:24] LABS: Platelet Estimate NORMAL (NORMAL); Platelet Morphology Comment NORMAL
[2025-01-15 18:00] VITALS: BP 144/79; PULSE 70; RESP 16; TEMP 36.3; O2SAT 97
[2025-01-15 18:31] VITALS: BP 174/85; PULSE 82; RESP 16; TEMP 36.8; O2SAT 95
== END 2025-01-15 18:32 | disposition home or self-care (01) ==
PROVIDERS: Physician Assistant Medical; Emergency Provider Emergency Medicine; PCP Internal Medicine
DX: K59.00 Constipation, unspecified (principal); R10.30 Lower abdominal pain, unspecified; E11.9 Type 2 diabetes mellitus without complications; I10 Essential (primary) hypertension; E78.5 Hyperlipidemia, unspecified; Z86.73 Personal history of transient ischemic attack (TIA), and cerebral infarction without residual deficits; Z79.899 Other long term (current) drug therapy; Z79.02 Long term (current) use of antithrombotics/antiplatelets; Z79.84 Long term (current) use of oral hypoglycemic drugs
CPT/HCPCS: 36415; 74018; 80053; 81003; 83690; 83735; 85007; 85025; 85027; 99283; 99284

== ENCOUNTER → 2025-01-15 16:46 | Outpatient (BNV) | payer MEDICAID, SELFPAY | PROVIDERS: Emergency Provider Emergency Medicine; PCP Internal Medicine; Visit Provider Radiology Diagnostic Radiology | DX: K56.41 Fecal impaction (principal); R14.0 Abdominal distension (gaseous) | CPT/HCPCS: 74018 ==

== ENCOUNTER 2025-03-10 10:49 | Outpatient (AMB) | payer MEDICAID, SELFPAY ==
[2025-03-10 10:57] VITALS: BP 180/80; BMI 34.4
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
== END 2025-03-10 11:32 | disposition home or self-care (01) ==
LOC: HO.HMCH 10:50
PROVIDERS: PCP Internal Medicine; Visit Provider Internal Medicine
DX: I10 Essential (primary) hypertension (principal); E11.9 Type 2 diabetes mellitus without complications; I63.9 Cerebral infarction, unspecified; G81.91 Hemiplegia, unspecified affecting right dominant side; R01.1 Cardiac murmur, unspecified; E78.5 Hyperlipidemia, unspecified; K59.04 Chronic idiopathic constipation

== ENCOUNTER → 2025-03-10 10:49 | Outpatient (BNVA) | payer MEDICAID, SELFPAY | PROVIDERS: PCP Internal Medicine; Visit Provider Internal Medicine | DX: E11.9 Type 2 diabetes mellitus without complications (principal); I10 Essential (primary) hypertension; E78.5 Hyperlipidemia, unspecified; R06.02 Shortness of breath; R01.1 Cardiac murmur, unspecified; K59.04 Chronic idiopathic constipation; I69.351 Hemiplegia and hemiparesis following cerebral infarction affecting right dominant side | CPT/HCPCS: 83036; 96127; 99212 ==

== ENCOUNTER → 2025-04-05 15:01 | Outpatient (REF) | payer MEDICAID, SELFPAY ==
--- NOTE | 2025-04-05 15:05 | CA_ITS ---
Transthoracic Echocardiogram Patient (Last, First, Middle): Michel Tom, Gender: Female Date of : 1945 Age: 80 Procedure Date: 04/05/2025 Procedure Type: Transthoracic Echocardiogram Location: OP Height: 167.64 cm Weight: 96.62 kg BSA: 2.05 m2 Heart Rate: bpm BP: 130 / 82 mmHg Dramatic Coach: Referring MD: Ángela Balbuena MD Symptoms: R01.1 - Cardiac murmur, unspecified Study Quality: Fair ECG Rhythm: Sinus Conclusions: - The left ventricular systolic function is normal. The calculated ejection fraction is 64% by biplane method. - There is moderate septal asymmetric hypertrophy. - No obvious valvular pathology seen on this study. Findings Left Ventricle Normal left ventricular cavity size. The left ventricular systolic function is normal. The calculated ejection fraction is 64% by biplane method. There is no evidence of regional wall motion abnormalities. Diastolic function is normal for age. There is moderate septal asymmetric hypertrophy. Right Ventricle Mildly increased right ventricular cavity size. There is normal right ventricular systolic function. Atria Both atria are normal in size. Aortic Valve There is a normal trileaflet aortic valve. There is no aortic valve stenosis. There is trace (trivial) aortic valve regurgitation. Mitral Valve The mitral valve appears normal. There is no mitral valve regurgitation. There is no mitral valve stenosis. Pulmonic Valve The pulmonic valve is likely normal. Tricuspid Valve Normal tricuspid valve structure. There is trace tricuspid valve regurgitation. There is no evidence of pulmonary hypertension. Great Vessels The asc aorta is normal in size. Venous The inferior vena cava is normal in size and collapses greater than 50% with inspiration. Pericardium/Pleural There is no evidence of pericardial effusion. Prior Study Comparison No prior study available for comparison. Recommendations, Care & Conclusions No obvious valvular pathology seen on this study. Measurements 2D Linear Measurements IVSd: 1.47 0.6-0.9/0.6-1.0 cm LVIDd: 3.24 3.9-5.3/4.2-5.9 cm LVIDd Index: 1.58 2.4-3.2/2.2-3.1 cm/m2 LVIDs: 2.14 2.0-3.6 cm LVPWd: 1.45 0.7-1.1 cm Ao Root: 3.10 2.1-3.5 cm LA Diam: 3.30 2.7-3.8/3.0-4.0 cm LAIDs Index: 1.61 1.5-2.3 cm/m2 LV Mass: 207.72 67-162/88-224 g LV Mass Index: 101.33 43-95/49-115 g/m2 LVOT Diam: 2.00 3.0+(-)1.3 cm 2D Systolic Function EF 4C: 65.30 >55% EF 2C: 61.90 >55% EF BiP: 63.70 >55% Mitral Valve MV Pk E: 0.61 MV PK A: 0.85 MV Decel Time: 119.00 E/A: 0.70 E'Lateral: 5.77 E'Medial: 4.46 E/E' Med: 13.70 E/E' Lat: 10.60 PHT: 35.00 MVA PHT: 6.29 Decel [place]: 5.16 Aortic Valve AoV Pk Donnie: 1.76 AoV Mn Donnie: 1.12 AoV VTI: 0.32 AoV Pk Grad: 12.00 Aov Mn Grad: 6.00 NEY Cont.VTI: 2.15 LVOT LVOT Pk Donnie: 1.11 LVOT Mn Donnie: 0.69 LVOT VTI: 0.22 LVOT Pk Grad: 5.00 LVOT Mn Grad: 2.00 LVOT Diam: 2.00 LVOT Area: 3.14 Diastolic Function MV Pk E: 0.61 MV Pk A: 0.85 E/A: 0.70 E'Medial: 4.46 E/E' Med: 13.70 E' Laterial: 5.77 E/E' Lat: 10.60 Right Ventricle TAPSE (mm): 20.00 TVS' Donnie: 14.00 Tricuspid Valve TR Pk Donnie: 2.38 TR Pk Grad: 23.00 RA Press: 3.00 RVSP: 26.00 Great Vessels Aorta Ao Root-2D: 3.10 2.0-3.7 cm Ao Asc: 3.10 2.1-3.4 cm Pulmonary Valve PV Pk Donnie: 1.19 Peak PV Grad: 6.00 Updated in Other Vendor System with Status of Final Tomas Leary MD electronically signed on 04/06/2025 10:02:23 AM with status of Final
--- OUTSIDE RECORDS SUMMARY | 2025-04-05 16:17 | XMS_ITS | Clinical Summary ---
Author Organization [employer] Address [address] [place] [address] Care Team Providers Care Testing Consultant Name Role Phone Unavailable Primary Care Provider [...] - 1-dose 75+ series) 2021 COVID-19 Vaccine ( - 2023-2 5 season) 2024 Influenza Vaccine (#1) 2025 HIB Vaccines Aged Out No longer eligi [...] patient's age to complete this topic Meningococcal B Vaccine Aged Out No l onger eligible based on patient's age to complete this topic Meningococcal Vaccine Aged Out No aydee evangelina eligible based on patient's age to complete this topic RSV under 20 months Aged Out No longe r eligible based on patient's age to complete this topic Rotavirus Vaccines Aged Out No longer eligible based on patient's age to complete this topic Insurance [employer]
== END ==
LOC: HO.CARD 15:01
PROVIDERS: PCP Internal Medicine; Visit Provider Internal Medicine
DX: R01.1 Cardiac murmur, unspecified (principal)
CPT/HCPCS: 93306

== ENCOUNTER → 2025-04-05 15:05 | Outpatient (BNV) | payer MEDICAID, SELFPAY | PROVIDERS: PCP Internal Medicine; Visit Provider Internal Medicine | DX: I42.2 Other hypertrophic cardiomyopathy (principal) | CPT/HCPCS: 93306 ==

== ENCOUNTER 2025-07-16 09:46 | Emergency (ER) | payer MEDICAID, SELFPAY ==
--- NOTE | ~2025-07-16 | XR_ITS ---
EXAMINATION: XR CHEST CLINICAL INFORMATION: chest pain COMPARISON: 12/13/2024, 09/04/2024. TECHNIQUE: 2 views of the chest were obtained. FINDINGS: Borderline cardiac enlargement. Mediastinal and hilar contours appear normal. The lungs are clear bilaterally. There is no pneumothorax or pleural effusion. There is no focal osseous or soft tissue abnormality. XR/XR chest 2V IMPRESSION: No active pulmonary disease. Electronically signed by: Tay Verde MD 07/16/2025 10:32 AM EDT
--- NOTE | 2025-07-16 09:48 | ECG_ITS ---
Test Reason : chest pain Blood Pressure : */* mmHG Vent. Rate : 125 BPM Atrial Rate : 125 BPM P-R Int : 128 ms QRS Dur : 74 ms QT Int : 302 ms P-R-T Axes : 55 9 60 degrees QTcB Int : 435 ms Sinus tachycardia with Premature supraventricular complexes Nonspecific ST abnormality Abnormal ECG When compared with ECG of 13-Dec-2024 14:55, Premature supraventricular complexes are now Present Referred By: Generic ED Physician Electronically Signed By: JUSTIN LIU MD
[2025-07-16 10:06] VITALS: BP 189/87; PULSE 115; RESP 18; TEMP 36.4; O2SAT 96; BMI 32.8
[2025-07-16 11:01] VITALS: BP 157/99; PULSE 120; RESP 20; O2SAT 98
[2025-07-16 11:07] LABS: Appearance Urine Clear; Glucose Urine UA Negative (Negative); PH 7.0 (5.0-9.0); Specific Gravity - Urine <= 1.005 (1.005-1.025)
[2025-07-16 11:12] VITALS: PULSE 100
[2025-07-16 11:20] LABS: MANUAL DIFF FLAG NO
[2025-07-16 11:25] LABS: Hematocrit 42.6 % (37.0-47.0); Hemoglobin 13.8 g/dl (12.0-16.0); Imm Gran Abs Auto 0.02 X10*3/uL (0.00-0.03); Imm Gran Pct Auto 0.3 % (0.0-0.4); Lymphocytes Absolute Auto 2.1 X10*3/uL (1.2-4.9); Mean Corpuscular HGB Conc 32.4 g/dl (31.0-35.0); Mean Corpuscular Hemoglobin 25.0 pg (27.0-33.0); Mean Corpuscular Volume 77.2 fL (80.0-98.0); NRBC Abs Auto 0.000 X10*3/uL (0.0-0.012); NRBC Pct Auto 0.0 /100WBC (0.0-0.2); Platelet Count 247 X10*3/uL (160-400); Red Blood Count 5.52 X10*6/uL (4.20-5.50); White Blood Count 6.4 X10*3/uL (4.8-10.8)
--- NOTE | 2025-07-16 11:31 | ED.CHESTPAIN ---
HPI - Chest Pain General Chief Complaint: Chest Pain Stated Complaint: Chest Pain, Shoulders and Back of Head Pain Time Seen by Provider: 07/16/25 10:12 Source: patient, RN notes reviewed and old records reviewed Mode of arrival: ambulatory History of Present Illness ED Provider: Simran Smith PA-C HPI narrative: 80-year-old Nigerien Creole speaking female with a past medical history of HTN, CVA with right-sided hemiplegia, HLD, diabetes, presenting to the ED complaining of intermittent headaches and chest pain x last week with associated palpitations. Reports symptoms worsened this morning with CP/palpitations. Denies headache at present. Denies vision change/loss, SOB, abdominal pain, nausea/vomiting, pedal edema Related Data Previous Rx's ?Medication ?Instructions ?Recorded blood sugar diagnostic (FreeStyle #50 ea 05/27/24 Lite Strips) blood-glucose meter (FreeStyle #1 ea 05/27/24 Lite Meter kit) lancets 28 gauge (FreeStyle #100 ea 05/27/24 Lancets) sennosides 8.6 mg tablet (senna) 8.6 mg PO BEDTIME PRN constipation 05/27/24 90 days #90 tabs lactulose 10 gram/15 mL oral 10 g (15 mL) PO BID PRN 10/14/24 solution constipation 30 days #237 mL simethicone 180 mg capsule 180 mg PO BID PRN abdominal 12/13/24 discomfort/gas #20 caps docusate sodium 100 mg capsule 100 mg PO BID #14 caps 01/15/25 (Colace) polyethylene glycol 3350 17 gram 17 g PO TID #30 ea 01/15/25 oral powder packet (Miralax) losartan 100 mg tablet 100 mg PO DAILY 90 days #90 tabs 03/04/25 amlodipine 10 mg tablet 10 mg PO DAILY 90 days #90 tabs 03/10/25 aspirin 81 mg tablet,delayed 81 mg PO DAILY 90 days #90 tabs 03/10/25 release atorvastatin 40 mg tablet (Lipitor) 40 mg PO BEDTIME 90 days #90 tabs 03/10/25 hydralazine 50 mg tablet 50 mg PO TID 90 days #270 tabs 03/10/25 metformin 500 mg tablet 500 mg PO BID 90 days #180 tabs 03/10/25 Allergies Allergy/AdvReac Type Severity Reaction Status Date / Time No Known Allergies Allergy Verified 07/16/25 10:10 Review of Systems Review of Systems: Yes all other systems are reviewed and are negative Constitutional: Constitutional: Reports as per [facility] Past Medical History Attestation statement: The following information was validated with the patient. Source: old records reviewed Medical History CVA (cerebral vascular accident) Hypertension Surgical History No pertinent past surgical history Family History Family History Mother Hypertension Father No problems noted. Social History Social History Housing: House Alcohol intake: never Patient Tobacco Use Status: Never used Tobacco Smoked in Last 30 Days: No e-Cigarette/Vaping Use: Never Used Second Hand Smoke Exposure: No Use of substances other than those prescribed or required for medical reasons: No Advance Directives: No Advance Directives Information Provided: Yes service: No Current occupational status: disabled Cognitive needs: Yes Hearing needs: No Vision needs: Yes Physical Exam Vital Signs: Vital Signs: Last Vital Signs Temp 0 F L 07/16/25 14:19 Pulse 107 H 07/16/25 14:19 Resp 20 07/16/25 14:19 BP 183/93 H 07/16/25 14:19 Pulse Ox 97 07/16/25 14:19 O2 Del Method Room Air 07/16/25 14:19 BMI result Body Mass Index 32.8 Const: General: cooperative, healthy appearing and no acute distress Orientation/consciousness: patient oriented x3 Limitations: no limitations HEENT: Head: Yes normal to inspection and Yes atraumatic Ears: hearing grossly normal bilaterally General nose exam: Normal external nose present Face and sinus: Yes normal facial exam Eyes: General: appearance normal, both eyes and all related structures EOM: EOMs intact bilaterally Neck: Neck: Yes normal visual inspection and Yes no meningeal signs Resp: Effort & Inspection: normal respiratory effort and no respiratory distress Auscultation: clear to auscultation bilaterally, no crackles and no wheezes Cardio: Rate: regular rate Heart sounds: S1 normal heart sound present and S2 normal heart sound present GI: Inspection: Yes normal to inspection Palpation (GI): Soft to palpation, nontender, no guarding and not rigid Skin: Rashes: no rashes Wounds: no wounds Neuro: Other: Right-sided hemiparesis (baseline) General: patient oriented x3, tone normal, moves all extremities, no meningeal signs, no focal motor deficits and CN's II-XI intact bilaterally Cranial nerves: Yes CN's II-XII intact bilaterally and Yes Bilaterally intact EOM present Cognition (Neuro): normal cognition Extrem: General: Yes normal to inspection Course Course Course Narrative: -1259--labs reassuring. Initial troponin negative. TSH WNL. -UA & viral testing negative XR chest 2V IMPRESSION: No active pulmonary disease. -1352--troponin x2 negative Results discussed with patient including worrisome signs and symptoms and strict return precautions, and when to return to the emergency department. They verbalized understanding and feel safe for discharge at this time. Medications Administered Discontinued Medications Generic Name Dose Route Start Last Admin Trade Name Freq PRN Reason Stop Dose Admin Sodium Chloride 500 mls @ 999 mls/hr 07/16/25 11:45 07/16/25 12:51 Ns IV 07/16/25 12:15 Infused .Q31M ALISON Infusion Medical Decision Making Medical Decision Making [facility] Narrative: 80-year-old [place] Creole speaking female with a past medical history of HTN, CVA with right-sided hemiplegia, HLD, diabetes, presenting to the ED complaining of intermittent headaches and chest pain x last week with associated palpitations. On exam initially tachycardic, NAD, nontoxic appearing, lungs CTA, abdomen soft/nontender. No pedal edema. Concern for arrhythmia vs atypical ACS vs viral illness vs metabolic abnormalities. Rule out thyroid dysfunction. Low suspicion for CVA/TIA or SAH. Unlikely PE/DVT. Plan: EKG, labs, CXR, viral testing, UA, re-evaluate Please refer to course for remaining clinical decision making, interpretation of labs/imaging results, and discussions with consultants and/or family members. Differential Diagnosis Differential Diagnoses: The differential diagnosis associated with the presentation includes As above Admission/Observation Consideration of admission/observation: Escalation of care including admission/observation considered Lab Data [facility] Lab Attestation statement: I reviewed the patient's lab results. 07/16/25 11:12 07/16/25 11:12 Labs: Lab Results 07/16/25 07/16/25 07/16/25 Range/Units 11:01 11:12 13:09 WBC 6.4 (4.8-10.8) X10*3/uL RBC 5.52 H (4.20-5.50) X10*6/uL Hgb 13.8 (12.0-16.0) g/dl Hct 42.6 (37.0-47.0) % MCV 77.2 L (80.0-98.0) fL MCH 25.0 L (27.0-33.0) pg MCHC 32.4 (31.0-35.0) g/dl RDW 14.5 (11.0-16.0) % Plt Count 247 (160-400) X10*3/uL MPV 10.5 (9.4-12.3) fL Immature Gran % (Auto) 0.3 (0.0-0.4) % Neut % (Auto) 55.3 (45-73) % Lymph % (Auto) 32.7 (20-40) % [place]ilion % (Auto) 10.1 (2-11) % Eos % (Auto) 1.1 (0-4) % Baso % (Auto) 0.5 (0-2) % Lymph # (Auto) 2.1 (1.2-4.9) X10*3/uL [place] # (Auto) 0.6 (0.1-1.2) X10*3/uL Eos # (Auto) 0.1 (0.0-0.4) X10*3/uL Baso # (Auto) 0.0 (0.0-0.2) X10*3/uL Abs Immat Gran (auto) 0.02 (0.00-0.03) X10*3/uL Absolute Neuts (auto) 3.5 (2.0-8.3) x10*3/uL Absolute Nucleated RBC 0.000 (0.0-0.012) X10*3/uL Nucleated RBC % (auto) 0.0 (0.0-0.2) /100WBC Sodium 140 (135-145) mmol/L Potassium 3.8 (3.3-5.1) mmol/L Chloride 106 (96-108) mmol/L Carbon Dioxide 26 (22-29) mmol/L Anion Gap 12 (12-20) BUN 14 (9-16) mg/dL Creatinine 0.76 (0.5-1.4) mg/dL Estim Creat Clear Calc 68.7 Estimated GFR > 60 Random Glucose 157 H (60-115) mg/dL Calcium 11.7 H D (8.4-10.2) mg/dL Magnesium 1.7 (1.6-2.6) mg/dL Total Bilirubin 0.5 (0.0-1.0) mg/dL AST 23 (5-31) U/L ALT 21 (0-31) U/L Alkaline Phosphatase 129 H (39-117) U/L Troponin I High Sens 2.8 2.8 (<3.5-17.0) ng/L NT-Pro-B Natriuret Pep 41.4 (<300) pg/mL Total Protein 8.4 H (6.5-8.0) g/dL Albumin 4.8 (3.5-5.0) g/dL TSH 1.20 (0.32-4.0) uIU/mL Urine Color Yellow Urine Appearance Clear Urine pH 7.0 (5.0-9.0) Ur Specific [place] <= 1.005 (1.005-1.025) Urine Protein Negative (Neg-Trace) mg/dL Urine Glucose (UA) Negative (Negative) mg/dL Urine Ketones Negative (Negative) mg/dL Urine Blood Negative (Negative) Urine Nitrite Negative (Negative) Ur Leukocyte Esterase Negative (Negative) Influenza Type A (PCR) NEGATIVE (Negative) Influenza Type B (PCR) NEGATIVE (Negative) RSV RNA Qual (PCR) NEGATIVE (Negative) SARS-CoV-2 RNA (RT-PCR) NEGATIVE (Negative) Independent Interpretation I performed an independent interpretation of an: EKG (My interpretation: EKG sinus tachycardia with premature supraventricular complexes rate 125. QTC 435. No STEMI.) and Plain X-Ray Radiology Impression Discussion of test interpretation with radiology: I have reviewed the radiologist's reading. External Record Review External record reviewed: Inpatient record, Office record, Outpatient record, Prior outpatient labs, Prior outpatient radiology, Primary care record and Outside ED record Tests considered The following testing was considered but not selected: As above Chronic Conditions Patient?s care impacted by: Diabetes and Hypertension Social Determinants Patient?s care significantly limited by Social Determinants of Health including: Problems related to primary support group and Other Social Determinant of Health Discharge Plan Discharge Clinical Impression: Atypical chest pain, Palpitations Patient Disposition: Home, Self-Care Instructions: Heart Palpitations (DC), Noncardiac Chest Pain (ED) Additional Instructions: Your blood work and chest x-ray are reassuring You tested negative for COVID and flu Please have close follow up with your primary care doctor 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 Continue home prescribed medications If her symptoms persist or worsens/becomes more constant, you have constant/unremitting chest pain, shortness of breath, lightheadedness/dizziness or fever return to the emergency department Prescriptions: No Action losartan 100 mg tablet 100 mg PO DAILY 90 Days Qty: 90 1RF simethicone 180 mg capsule 180 mg PO BID PRN (Reason: abdominal discomfort/gas) Qty: 20 0RF docusate sodium [Colace] 100 mg capsule 100 mg PO BID Qty: 14 0RF polyethylene glycol 3350 [Miralax] 17 gram powder in packet 17 g PO TID Qty: 30 0RF (DME) FreeStyle Lite Strips Strip See Rx Instructions .Route Qty: 50 6RF Rx Instructions: Use 1 test strip once a day (DME) blood-glucose meter [FreeStyle Lite Meter] Kit See Rx Instructions .Route Qty: 1 0RF Rx Instructions: As directed (DME) lancets [FreeStyle Lancets] 28 gauge misc See Rx Instructions .Route Qty: 100 6RF Rx Instructions: Use 1 lancet once a day sennosides [senna] 8.6 mg tablet 8.6 mg PO BEDTIME PRN (Reason: constipation) 90 Days Qty: 90 0RF hydralazine 50 mg tablet 50 mg PO TID 90 Days Qty: 270 1RF amlodipine 10 mg tablet 10 mg PO DAILY 90 Days Qty: 90 3RF aspirin 81 mg tablet,delayed release (DR/EC) 81 mg PO DAILY 90 Days Qty: 90 3RF atorvastatin [Lipitor] 40 mg tablet 40 mg PO BEDTIME 90 Days Qty: 90 3RF metformin 500 mg tablet 500 mg PO BID 90 Days Qty: 180 3RF lactulose 10 gram/15 mL solution 10 g PO BID PRN (Reason: constipation) 30 Days Qty: 237 2RF Referrals: [facility] [Provider Group] - 1 week Ángela Cantrell MD [Primary Care Provider, Internal Medicine] - 3 days Interventions: ED Discharge Assessment Last Done: 07/16/25 14:19 Discharge Date/Time: 07/16/25 14:20 Print Language: Lv Stewart
--- NOTE | 2025-07-16 11:45 | PC.NURSE ---
pt is alert and oriented, skin appropriate for ethnicity, respirations even and unlabored, ls clear, pt is reporting that this morning was having pain in the back of her head/shoulders/chest/felt like her heart was racing but currently these symptoms have all resolved, pt states she has been having these symptoms on and off for a couple of weeks and has been seen in the ED for the same thing, this Rn did notice that after the pt walked from the bathroom to the bed HR was 120 after resting for a while the HR came down to 100,
[2025-07-16 11:47] LABS: Alanine Aminotransferase 21 U/L (0-31); Albumin Level 4.8 g/dL (3.5-5.0); Alkaline Phosphatase 129 U/L (39-117); Anion Gap 12 (12-20); Aspartate Amino Transferase 23 U/L (5-31); Blood Urea Nitrogen 14 mg/dL (9-16); Calcium 11.7 mg/dL (8.4-10.2); Carbon Dioxide 26 mmol/L (22-29); Chloride 106 mmol/L (96-108); Creatinine Clr Calc Pharmacy 68.7; Estimated Glomerular Filt Rate > 60; Magnesium 1.7 mg/dL (1.6-2.6); Potassium 3.8 mmol/L (3.3-5.1); Sodium 140 mmol/L (135-145); Total Protein 8.4 g/dL (6.5-8.0)
[2025-07-16 11:55] LABS: NT Pro B Type Natriuretic Pept 41.4 pg/mL (<300)
[2025-07-16 11:56] LABS: Troponin-I High Sensitivity 2.8 ng/L (<3.5-17.0)
[2025-07-16 12:04] LABS: Resp Syncy Virus RNA Qual PCR NEGATIVE (Negative); SARS COV2 PCR INHOUSE NEGATIVE (Negative)
[2025-07-16 13:41] LABS: Troponin-I High Sensitivity 2.8 ng/L (<3.5-17.0)
[2025-07-16 14:19] VITALS: BP 183/93; PULSE 107; RESP 20; TEMP -17.7; TEMP 0; O2SAT 97
== END 2025-07-16 14:20 | disposition home or self-care (01) ==
PROVIDERS: Physician Assistant; Emergency Provider Emergency Medicine; PCP Internal Medicine
DX: R07.9 Chest pain, unspecified (principal); R00.2 Palpitations; E11.9 Type 2 diabetes mellitus without complications; E78.5 Hyperlipidemia, unspecified; I10 Essential (primary) hypertension; Z03.818 Encounter for observation for suspected exposure to other biological agents ruled out; R00.0 Tachycardia, unspecified; Z86.73 Personal history of transient ischemic attack (TIA), and cerebral infarction without residual deficits
CPT/HCPCS: 36415; 71046; 80053; 81003; 83735; 83880; 84443; 84484; 85025; 87637; 93005; 96360; 99284; 99285

== ENCOUNTER → 2025-07-16 09:48 | Outpatient (BNV) | payer MEDICAID, SELFPAY | PROVIDERS: Emergency Provider Emergency Medicine; PCP Internal Medicine; Visit Provider Internal Medicine Cardiovascular Disease | DX: R00.0 Tachycardia, unspecified (principal); I49.3 Ventricular premature depolarization | CPT/HCPCS: 93010 ==

== ENCOUNTER → 2025-07-16 10:11 | Outpatient (BNV) | payer MEDICAID, SELFPAY | PROVIDERS: PCP Internal Medicine; Visit Provider Radiology Diagnostic Radiology | DX: R07.9 Chest pain, unspecified (principal) | CPT/HCPCS: 71046 ==

== ENCOUNTER 2025-08-16 10:45 | Outpatient (AMB) | payer MEDICAID, SELFPAY ==
[2025-08-16 11:09] VITALS: BP 120/68; PULSE 94; TEMP 36.2; O2SAT 99; BMI 32.7
--- NOTE | 2025-08-16 11:09 | MHC.PC.OV ---
Vital Signs 08/16/25 11:09 Height 5 ft 6 in Weight 202 lb 8 oz BMI 32.7 BP 120/68 Blood Pressure Location Lt brachial Position Sitting Pulse 94 Pulse Source Pulse Oximeter Temp 97.1 F Temp Source Temporal Artery Scan Pulse Oximetry (%) 99 Oxygen Delivery Method Room Air Intake Visit Reasons: dm Intake Note: Patient is here to follow up on DM. Finnish Rubber Required: Yes Finnish Rubber Language: [place] Creole Finnish Rubber Name: Gordy(friend) Information Interpreted: non-clinical & clinical Box Estimator: Present Accompanied by: Friend Allergies No Known Allergies Allergy (Verified 08/16/25 11:09) Tobacco use date assessed: 08/16/25 Fall risk assessment: No Falls in past year Last assessed Fall Risk: 08/16/25 Dental Screening Dental Screen Date: 10/14/24 HPI HPI Comments History of Present Illness Details The patient is a 80 year old individual presenting for a follow-up for multiple chronic conditions. The patient has a history of hypertension, which is well-controlled with a recent blood pressure reading of 120/68 mmHg, and diabetes, with recent good blood sugar levels. The patient was hospitalized at the end of June for chest pain and has a follow-up appointment with cardiology scheduled for August 24. The patient's constipation has improved, with bowel movements occurring every three to four days, compared to every eight days previously. Current medications include amlodipine 10 mg, aspirin 81 mg, Lipitor, docusate, hydralazine, losartan, metformin, Miralax, Senna, and simethicone, with no recent changes. The patient reports no known drug allergies. Recent laboratory results showed good kidney function, but slightly elevated calcium and total protein levels. The patient also reports intermittent abdominal pain. [facility] Medical History (Updated 08/16/25 @ 11:31 by Ángela Balbuena MD) CVA (cerebral vascular accident) Hypertension Surgical History No pertinent past surgical history Family History Mother Hypertension Father No problems noted. 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 What is your living situation today?: I have a steady place to live Within the past 12 months, did the food you bought not last and you didn't have the money to get more?: Sometimes True Within the past 12 months, did you worry whether your food would run out before you got money to buy more?: Sometimes True Do you have trouble paying for medicines?: Yes Do you have trouble getting transportation to medical appointments?: Yes Do you have trouble paying your heating and electricity bill?: Yes Do you have trouble taking care of your child, family member or friend?: Yes Do you have trouble with day-to-day activities such as bathing, preparing meals, shopping, managing finances, etc.?: Yes Are you currently unemployed and looking for a job?: Yes Are you interested in more education?: No THRIVE Score: 4 DAXA-7 AMB Questionnaire DAXA-7 Date DAXA - 7 assessed: 10/14/24 Source: Developed by Drs. Guy Yun, Norma Solis, Sunday Thompson and colleagues, with an educational alex from [employer]. Review of Systems Const All systems reviewed & are unremarkable except as noted in HPI and below Card Denies chest pain at rest, Denies chest pain with activity, Denies edema, Denies irregular heart rhythm, Denies claudication, Denies dyspnea, Denies dyspnea on exertion, Denies orthopnea, Denies paroxysmal nocturnal dyspnea and Denies slow heart rate Resp Denies cough, Denies dyspnea and Denies dyspnea on exertion GI Denies abdominal pain, Denies change in bowel habits, Denies excessive flatus, Denies nausea and Denies vomiting Physical exam (Primary Care) Vital Signs: Last Vital Signs Temp 97.1 F 08/16/25 11:09 Oxygen Delivery Method Room Air 08/16/25 11:09 BMI result Body Mass Index 32.7 BMI Assessment/Plan discussion: High BMI High, discussed plan: lifestyle, weight reduction, dietary and physical activity Tobacco/Smoking Status: Tobacco use Status Tobacco use date assessed 10/14/24 07/16/25 09:47 Patient Tobacco Use Status Never used Tobacco 07/16/25 09:47 e-Cigarette/Vaping Use Never Used 07/16/25 09:47 Thrive Assessment: Date of Thrive Assessment Date Thrive assessed 03/10/25 08/16/25 10:46 Resp Effort & Inspection: normal respiratory effort Auscultation: clear to auscultation bilaterally Cardio Jugular venous distension: no JVD Rate: regular rate Rhythm: regular rhythm Heart sounds: S1 normal heart sound present and S2 normal heart sound present Extrem General: Yes full ROM Results AMB Hemoglobin A1c AMB Hemoglobin A1c 6.5 % Last Edit by CESAR Saldivar on 08/16/25 11:24 Coding Level of Care Code Complex visit Add On G2211 Diagnoses Elevated total protein R77.8 Essential hypertension I10 Hyperlipidemia LDL goal <70 E78.5 Type 2 diabetes mellitus without complication, without long-term current use of insulin E11.9 Diabetes mellitus complication status: without complication Chronic idiopathic constipation K59.04 Hypercalcemia E83.52 Time Spent (min) 23 Assessment & Plan Assessment & Plan (1) Elevated total protein: Code(s): R77.8 - Other specified abnormalities of plasma proteins Category: Medical (2) Essential hypertension: Code(s): I10 - Essential (primary) hypertension Category: Medical (3) Hyperlipidemia LDL goal <70: Code(s): E78.5 - Hyperlipidemia, unspecified Category: Medical (4) Type 2 diabetes mellitus, without long-term current use of insulin: Code(s): E11.9 - Type 2 diabetes mellitus without complications Category: Medical Qualifiers: Diabetes mellitus complication status: without complication Qualified Code(s): E11.9 - Type 2 diabetes mellitus without complications (5) Chronic idiopathic constipation: Code(s): K59.04 - Chronic idiopathic constipation Category: Medical (6) Hypercalcemia: Code(s): E83.52 - Hypercalcemia Category: Medical Plan Plan 1. Essential Hypertension The patient's blood pressure is well-controlled at 120/68 mmHg. The current medication regimen, which includes amlodipine, hydralazine, and losartan, will be continued without changes. 2. Diabetes Mellitus The patient's blood sugar is noted to be good. The patient will continue the current medication, metformin. 3. Chronic Constipation The patient's constipation has improved, with bowel movements occurring every 3-4 days. The patient will continue the current regimen, including docusate, Miralax, and Senna. 4. Hypercalcemia And Hyperproteinemia Recent labs indicated slightly elevated calcium and total protein levels. Blood work will be ordered to repeat the calcium and protein tests. 5. Abdominal Pain The patient reports intermittent abdominal pain. The current plan is to monitor and assess whether the patient's existing medications provide relief. 6. History Of Chest Pain The patient was hospitalized for chest pain at the end of June. The patient has a cardiology appointment scheduled for August 24. A paper reminder for the appointment will be provided at checkout. Orders: Orders AMB Hemoglobin A1c Today E11.9 - Type 2 diabetes mellitus without complications Calcium, Ionized Today E83.52 - Hypercalcemia Protein Electrophoresis, Serum Today R77.8 - Other specified abnormalities of plasma proteins Medications: Refilled lactulose 10 grams (15 mL) PO BID PRN 237 mL 2RF constipation 30 days docusate sodium (Colace) 100 mg PO BID 14 caps 0RF
--- OUTSIDE RECORDS SUMMARY | 2025-08-16 13:31 | XMS_ITS ---
Author Organization Unknown ENCOUNTERS Encounter Performer Location Date Diagnosis Diagnosis Status Emergency [facility] [address] [place] [address] [id number] [facility] Pre Admit Generic ED Physician [address] [address] [id number] Emergency [address] [address] [id number] [facility] Pre Admit Generic ED Physician [facility] [address] [place] [address] [id number] Emergency [address] [address] [id number] [place] Pre Admit [address] [address] [id number] *Note: Encounters from your own facility or health system may be excluded. Allergies, Adverse Reactions, Alerts Allergen Type Severity Identification Date Medications Name Date Quantity Days Supplied GPI Number
--- OUTSIDE RECORDS SUMMARY | 2025-08-16 13:31 | XMS_ITS | Clinical Summary ---
Author Organization [employer] Address [address] [place] [address] Care Team Providers Care Paver Installer Name Role Phone Unavailable Primary Care Provider [...] 75+ series) 2021 COVID-19 Vaccine ( - 2024-2 6 season) 2025 Influenza Vaccine (#1) 2025 HIB Vaccines Aged [...] patient's age to complete this topic Insurance [employer]
== END 2025-08-16 11:33 | disposition home or self-care (01) ==
LOC: HO.HMCH 10:46
PROVIDERS: PCP Internal Medicine; Visit Provider Internal Medicine
DX: R77.8 Other specified abnormalities of plasma proteins (principal); I10 Essential (primary) hypertension; E78.5 Hyperlipidemia, unspecified; E11.9 Type 2 diabetes mellitus without complications; K59.04 Chronic idiopathic constipation; E83.52 Hypercalcemia

== ENCOUNTER → 2025-08-16 10:45 | Outpatient (BNVA) | payer MEDICAID, SELFPAY | PROVIDERS: PCP Internal Medicine; Visit Provider Internal Medicine | DX: I10 Essential (primary) hypertension (principal); K59.00 Constipation, unspecified; R77.8 Other specified abnormalities of plasma proteins; E78.5 Hyperlipidemia, unspecified; E11.9 Type 2 diabetes mellitus without complications; K59.04 Chronic idiopathic constipation; E83.52 Hypercalcemia; R10.9 Unspecified abdominal pain | CPT/HCPCS: 83036 ==